=== PATIENT | female | born 1935 | race Caucasian/White ===

== ENCOUNTER 2017-09-14 10:18 | Inpatient (IN) | payer MEDICARE, BC ==
[2017-09-14] MEDS ORDERED: Sodium Chloride 0.9% 10 ML Syringe FLUSH PRN (13:59)
[2017-09-14] MEDS ORDERED: Temazepam 15 MG Cap PO PRN (13:59)
[2017-09-14] MEDS ORDERED: Enoxaparin 30 MG/0.3 ML Syringe SUBCUT SCH (14:00)
[2017-09-14] MEDS ORDERED: Enoxaparin 30 MG/0.3 ML Syringe SUBCUT STA (14:30)
[2017-09-14 14:35] LABS: CHLORIDE,CL 105 mEq/L (98-106); SODIUM,NA 142 mEq/L (136-145)
[2017-09-15] MEDS ORDERED: Aspirin 81 MG Tab.Chew PO SCH ×2 (08:00)
[2017-09-15] MEDS: Enoxaparin 30 MG/0.3 ML Syringe SUBCUT SCH (08:17)
[2017-09-15] MEDS: Docusate Sodium 100 MG Cap PO SCH (08:17)
[2017-09-15] MEDS: Acetaminophen 325 MG Tab PO PRN (08:52)
--- NOTE | 2017-09-15 09:52 | PCM.PN ---
- General Info Date of Service: 09/15/17 Admission Dx/Problem (Free Text): weakness Functional Status: Reports: Pain Controlled, Tolerating Diet, Ambulating - Review of Systems General: Reports: Weakness, Fatigue. Denies: Fever HEENT: Reports: No Symptoms Pulmonary: Denies: Shortness of Breath, Cough Cardiovascular: Denies: Chest Pain, Edema, Lightheadedness Gastrointestinal: Denies: Abdominal Pain, Nausea, Vomiting Genitourinary: Reports: No Symptoms Musculoskeletal: Reports: Neck Pain, Joint Pain Skin: Reports: No Symptoms Neurological: Reports: No Symptoms - Patient Data Vitals - Most Recent: Last Vital Signs Temp 98.3 F 09/15/17 07:49 Pulse 94 09/15/17 07:49 Resp 20 09/15/17 07:49 BP 123/59 L 09/15/17 07:49 Pulse Ox 94 L 09/15/17 07:49 Weight - Most Recent: 152 lb 8 oz Lab Results Last 24 Hours: Laboratory Results - last 24 hr 09/14/17 09/14/17 09/14/17 Range/Units 13:59 14:18 14:18 WBC 5.1 (5.0-10.0) 10^3/uL RBC 4.25 (4.00-5.50) 10^6/uL Hgb 12.9 (12.0-16.0) g/dL Hct 38.9 (37.0-47.0) % MCV 91.5 (82.0-94.0) fL MCH 30.4 (27.0-32.0) pg MCHC 33.2 (33.0-38.0) g/dL RDW Coeff of Maritza 13.5 (11.0-15.0) % Plt Count 213 (150-400) 10^3/uL Neut % (Auto) 64.4 (35-85) % Lymph % (Auto) 25.0 (10-55) % [place] % (Auto) 9.4 (0-16) % Eos % (Auto) 0.8 (0-5) % Baso % (Auto) 0.4 (0-3) % Neut # (Auto) 3.30 (1.80-7.00) 10^3/uL Lymph # (Auto) 1.28 (1.00-4.80) 10^3/uL [place] # (Auto) 0.48 (0.00-0.80) 10^3/uL Eos # (Auto) 0.04 (0.00-0.45) 10^3/uL Baso # (Auto) 0.02 10^3/uL Sodium 142 (136-145) mEq/L Potassium 4.0 (3.5-5.0) mEq/L Chloride 105 (98-106) mEq/L Carbon Dioxide 29 (21-32) mmol/L BUN 14 (7-18) mg/dL Creatinine 0.9 (0.6-1.0) mg/dL Est Cr Clr Drug Dosing 47.78 mL/min Estimated GFR (MDRD) 60 (>=60) mL/min Glucose 121 H (75-99) mg/dL Calcium 9.4 (8.4-10.1) mg/dL Total Bilirubin 0.5 (0.0-1.0) mg/dL AST 20 (15-37) U/L ALT 16 (12-78) U/L Alkaline Phosphatase 64 (46-116) U/L Troponin I < 0.017 (0.00-0.06) ng/mL C-Reactive Protein < 0.2 L (0.2-0.8) mg/dL Total Protein 6.2 L (6.4-8.2) g/dL Albumin 3.5 (3.4-5.0) g/dL Urine Color Yellow (YELLOW) Urine Appearance Clear (CLEAR) Urine pH 7.0 (4.5-8.0) Ur Specific [place] 1.015 (1.003-1.020) Urine Protein Negative (NEGATIVE) mg/dL Urine Glucose (UA) Negative (NEGATIVE) mg/dL Urine Ketones Negative (NEGATIVE) mg/dL Urine Occult Blood Trace-intact H (NEGATIVE) Urine Nitrite Negative (NEGATIVE) Urine Bilirubin Negative (NEGATIVE) Urine Urobilinogen 1.0 (0.2-1.0) EU/dL Ur Leukocyte Esterase Negative (NEGATIVE) Urine RBC 0-5 (0-5) /HPF Urine WBC Not seen (0-5) /HPF Ur Squamous Epith Cells Occasional H (NOT SEEN) /HPF Urine Bacteria Occasional H (NOT SEEN) /HPF Med Orders - Current: Current Medications Acetaminophen (Tylenol) 650 mg PO Q6H PRN PRN Reason: Pain/Fever Last Admin: 09/15/17 08:52 Dose: 650 mg Docusate Sodium (Colace) 100 mg PO DAILY [facility] Last Admin: 09/15/17 08:17 Dose: 100 mg Enoxaparin Sodium (Lovenox) 30 mg SUBCUT Q24H [facility] Last Admin: 09/15/17 08:17 Dose: 30 mg Sodium Chloride (Saline Flush) 10 ml FLUSH ASDIRECTED PRN PRN Reason: Keep Vein Open Temazepam (Restoril) 15 mg PO BEDTIME PRN PRN Reason: Sleep Discontinued Medications Aspirin (Aspirin) mg PO DAILY [facility] Aspirin (Aspirin) 81 mg PO DAILY [facility] Stop: 09/15/17 08:01 Last Admin: 09/15/17 08:17 Dose: 81 mg Enoxaparin Sodium (Lovenox) 30 mg SUBCUT Q24H [facility] Last Admin: 09/14/17 14:07 Dose: Not Given Enoxaparin Sodium (Lovenox) 30 mg SUBCUT NOW [facility] Stop: 09/14/17 14:31 Last Admin: 09/14/17 14:59 Dose: 30 mg - Exam General: Alert, Oriented HEENT: Mucous Membr. Moist/[place] Neck: Supple Lungs: Clear to Auscultation, Normal Respiratory Effort Cardiovascular: Regular Rate, Regular Rhythm GI/Abdominal Exam: Normal Bowel Sounds, Soft, Non-Tender Back Exam: Other (wearing a soft collar on her neck for long standing neck pain) Skin: Warm, Dry Neurological: No New Focal Deficit - Problem List & Annotations (1) Weakness SNOMED Code(s): 77018548 Code(s): R53.1 - WEAKNESS Status: Acute Priority: High Current Visit: Yes - Problem List Review Problem List Initiated/Reviewed/Updated: Yes - My Orders Last 24 Hours: My Active Orders 09/15/17 08:22 Consult to Physical Therapy [PT Evaluation and Treatment] [CONS] Routine 09/15/17 08:28 Acetaminophen [Tylenol] 650 mg PO Q6H PRN - Assessment Assessment:: Weakness - Plan Plan:: Patient doing well today, states just feel tired and weak. Labs done on admit, essentially all negative. She is wearing a soft collar on her neck that she routinely wears since falling 2 years ago. States is having difficulty with left rotation of her neck. Appetite good. Ambulating with staff as standby. Lung sounds clear. Will have PT evaluate and treat. If no changes, possible discharge tomorrow.
[2017-09-15] MEDS: Ondansetron 4 MG/2 ML SDV IVPUSH PRN (17:34)
[2017-09-16] MEDS: Docusate Sodium 100 MG Cap PO SCH (07:34)
[2017-09-16] MEDS: Enoxaparin 30 MG/0.3 ML Syringe SUBCUT SCH (07:35)
[2017-09-16] MEDS: Ondansetron 4 MG/2 ML SDV IVPUSH SCH (19:39)
[2017-09-17] MEDS: Enoxaparin 30 MG/0.3 ML Syringe SUBCUT SCH (07:59)
[2017-09-17] MEDS: Docusate Sodium 100 MG Cap PO SCH (07:59)
[2017-09-17] MEDS: Aspirin 81 MG Tab.EC PO SCH (07:59)
[2017-09-17] MEDS: Ondansetron 4 MG/2 ML SDV IVPUSH PRN (08:00)
[2017-09-17] MEDS: Ondansetron 4 MG/2 ML SDV IVPUSH SCH ×3 (08:05→19:53)
--- NOTE | 2017-09-17 12:11 | PCM.PN ---
- General Info Date of Service: 09/17/17 Admission Dx/Problem (Free Text): Weakness Dizziness- Vertigo Subjective Update: Patient reports she continues to feel very weak. She continues to have lightheadedness and a spinning sensation with movements. She is unsteady on her feet. Does feel she is maybe improving some, but does not feel safe ambulating on her own. She also feels her vision is "hazy" when she changes positions. Functional Status: Reports: Pain Controlled, Tolerating Diet, Ambulating, Urinating. Denies: New Symptoms - Review of Systems General: Reports: Weakness, Fatigue. Denies: Fever, Chills HEENT: Reports: Visual Changes Pulmonary: Reports: No Symptoms Cardiovascular: Reports: Lightheadedness Gastrointestinal: Reports: No Symptoms Genitourinary: Reports: No Symptoms Musculoskeletal: Reports: Neck Pain, Shoulder Pain Skin: Reports: No Symptoms Neurological: Reports: Dizziness, Weakness Psychiatric: Denies: Confusion - Patient Data Vitals - Most Recent: Last Vital Signs Temp 97.3 F 09/17/17 07:49 Pulse 57 L 09/17/17 07:49 Resp 19 09/17/17 07:49 BP 121/54 L 09/17/17 07:49 Pulse Ox 99 09/17/17 07:49 Weight - Most Recent: 152 lb 8 oz Med Orders - Current: Current Medications Acetaminophen (Tylenol) 650 mg PO Q6H PRN PRN Reason: Pain/Fever Last Admin: 09/15/17 08:52 Dose: 650 mg Aspirin (Halfprin) 81 mg PO [facility] Last Admin: 09/17/17 07:59 Dose: 81 mg Docusate Sodium (Colace) 100 mg PO DAILY [facility] Last Admin: 09/17/17 07:59 Dose: 100 mg Enoxaparin Sodium (Lovenox) 30 mg SUBCUT Q24H [facility] Last Admin: 09/17/17 07:59 Dose: 30 mg Ondansetron HCl (Zofran) 4 mg IVPUSH Q6H PRN PRN Reason: Nausea Last Admin: 09/15/17 17:34 Dose: 4 mg Ondansetron HCl (Zofran) 4 mg IVPUSH BID [facility] Last Admin: 09/17/17 08:20 Dose: 4 mg Sodium Chloride (Saline Flush) 10 ml FLUSH ASDIRECTED PRN PRN Reason: Keep Vein Open Temazepam (Restoril) 15 mg PO BEDTIME PRN PRN Reason: Sleep Discontinued Medications Aspirin (Aspirin) mg PO DAILY [facility] Aspirin (Aspirin) 81 mg PO DAILY [facility] Stop: 09/15/17 08:01 Last Admin: 09/15/17 08:17 Dose: 81 mg Enoxaparin Sodium (Lovenox) 30 mg SUBCUT Q24H [facility] Last Admin: 09/14/17 14:07 Dose: Not Given Enoxaparin Sodium (Lovenox) 30 mg SUBCUT NOW [facility] Stop: 09/14/17 14:31 Last Admin: 09/14/17 14:59 Dose: 30 mg - Exam General: Alert, Oriented Neck: Supple Lungs: Clear to Auscultation, Normal Respiratory Effort Cardiovascular: Regular Rate, Regular Rhythm Neurological: No New Focal Deficit Psy/Mental Status: Alert, Normal Affect, Normal Mood - Problem List & Annotations (1) Dizziness SNOMED Code(s): 884339967 Code(s): R42 - DIZZINESS AND GIDDINESS Status: Acute Current Visit: Yes (2) Vertigo SNOMED Code(s): 697888522 Code(s): R42 - DIZZINESS AND GIDDINESS Status: Acute Current Visit: Yes (3) Weakness SNOMED Code(s): 94385112 Code(s): R53.1 - WEAKNESS Status: Acute Priority: High Current Visit: Yes - Problem List Review Problem List Initiated/Reviewed/Updated: Yes - Assessment Assessment:: Weakness Dizziness- Vertigo - Plan Plan:: Patient doing okay today. Reports continues fatigue and weakness. She does report she continues to have lightheadedness with standing and vertigo with certain movements. Continues to require SBA with transfers. She reports she has difficulty with neck pain and rotation of her neck. Does have a soft collar on at time of rounds. She reports she wears this intermittently since falling 2 years ago. Will have PT evaluate and treat tomorrow. May need SNF placement upon discharge.
[2017-09-17] MEDS: Acetaminophen 325 MG Tab PO PRN (19:57)
[2017-09-18] MEDS: Acetaminophen 325 MG Tab PO PRN ×2 (04:39→20:00)
[2017-09-18] MEDS: Aspirin 81 MG Tab.EC PO SCH (07:27)
[2017-09-18] MEDS: Ondansetron 4 MG/2 ML SDV IVPUSH SCH ×2 (07:27→19:44)
[2017-09-18] MEDS: Enoxaparin 30 MG/0.3 ML Syringe SUBCUT SCH (07:27)
[2017-09-18] MEDS: Docusate Sodium 100 MG Cap PO SCH (07:27)
--- NOTE | 2017-09-18 08:29 | PN ---
DATE: 09/16/2017 S: Philly is seen with family present. She continues to be very weak. I would not say lethargic, but just does not feel like she has a lot of energy. She complains of significant and ongoing issues with dizziness. This seems like this is more vertiginous. We do have her in a soft collar now and she thinks it does give her some improvement. Unfortunately, no further PT is available this weekend for some canalith repositioning. O: GENERAL: She is pleasant and cooperative. HEENT: Grossly benign. NECK: Supple. Veins are flat. RESPIRATORY: Her lung sounds remain clear. CARDIAC: Tones are regular. ABDOMEN: Soft. She has no peripheral edema. She is bradycardic with pulses in the 50s through the night, but when she is up she is usually in the low 60s. ASSESSMENT: 1. FATIGUE AND WEAKNESS. 2. LIKELY ONGOING VERTIGO. P: I just do not feel the patient is stable for home at this time. She continues to have multiple somatic complaints and now with this worsening dizziness, I would rather put her on some low-dose scheduled Zofran and try to have PT work with her this upcoming week. I am going to schedule for an MRI of the head and of the C-spine because she has some chronic neck pain. I believe she had her carotid yesterday. I am yet to see those reports, but at this time I think she is just too fragile to go with her multiple complaints and her vertigo. DENILSON/ASHWINI /[id number]
--- NOTE | 2017-09-18 15:27 | PCM.PN ---
- General Info Date of Service: 09/18/17 Admission Dx/Problem (Free Text): Weakness Dizziness- Vertigo Functional Status: Reports: Pain Controlled, Ambulating. Denies: Tolerating Diet (not eating well due to nausea this am) - Review of Systems General: Reports: Fatigue. Denies: Fever, Weakness HEENT: Reports: No Symptoms Pulmonary: Denies: Shortness of Breath, Cough Cardiovascular: Denies: Chest Pain, Edema, Lightheadedness Gastrointestinal: Reports: Abdominal Pain, Decreased Appetite, Nausea. Denies: Vomiting Genitourinary: Reports: No Symptoms Musculoskeletal: Reports: No Symptoms Skin: Reports: No Symptoms Neurological: Reports: No Symptoms - Patient Data Vitals - Most Recent: Last Vital Signs Temp 96.9 F 09/18/17 07:25 Pulse 57 L 09/18/17 07:25 Resp 16 09/18/17 07:25 BP 132/58 L 09/18/17 07:25 Pulse Ox 96 09/18/17 07:25 Weight - Most Recent: 152 lb 8 oz Med Orders - Current: Current Medications Acetaminophen (Tylenol) 650 mg PO Q6H PRN PRN Reason: Pain/Fever Last Admin: 09/18/17 04:39 Dose: 650 mg Aspirin (Halfprin) 81 mg PO WITHBREAKFAST [facility] Last Admin: 09/18/17 07:27 Dose: 81 mg Docusate Sodium (Colace) 100 mg PO DAILY [facility] Last Admin: 09/18/17 07:27 Dose: 100 mg Enoxaparin Sodium (Lovenox) 30 mg SUBCUT Q24H [facility] Last Admin: 09/18/17 07:27 Dose: 30 mg Ondansetron HCl (Zofran) 4 mg IVPUSH Q6H PRN PRN Reason: Nausea Last Admin: 09/15/17 17:34 Dose: 4 mg Ondansetron HCl (Zofran) 4 mg IVPUSH BID [facility] Last Admin: 09/18/17 07:27 Dose: 4 mg Sodium Chloride (Saline Flush) 10 ml FLUSH ASDIRECTED PRN PRN Reason: Keep Vein Open Temazepam (Restoril) 15 mg PO BEDTIME PRN PRN Reason: Sleep Discontinued Medications Aspirin (Aspirin) mg PO DAILY [facility] Aspirin (Aspirin) 81 mg PO DAILY [facility] Stop: 09/15/17 08:01 Last Admin: 09/15/17 08:17 Dose: 81 mg Enoxaparin Sodium (Lovenox) 30 mg SUBCUT Q24H [facility] Last Admin: 09/14/17 14:07 Dose: Not Given Enoxaparin Sodium (Lovenox) 30 mg SUBCUT NOW [facility] Stop: 09/14/17 14:31 Last Admin: 09/14/17 14:59 Dose: 30 mg - Exam General: Alert, Oriented HEENT: Mucous Membr. Moist/[place] Neck: Supple Lungs: Clear to Auscultation, Normal Respiratory Effort Cardiovascular: Regular Rate, Regular Rhythm GI/Abdominal Exam: Normal Bowel Sounds, Soft, Non-Tender Extremities: Normal Inspection, No Pedal Edema Skin: Warm, Dry Neurological: No New Focal Deficit - Problem List & Annotations (1) Weakness SNOMED Code(s): 27417535 Code(s): R53.1 - WEAKNESS Status: Acute Priority: High Current Visit: Yes - Problem List Review Problem List Initiated/Reviewed/Updated: Yes - Assessment Assessment:: Weakness Dizziness- Vertigo - Plan Plan:: Patient doing okay today. Reports continues fatigue and weakness. She does report she continues to have lightheadedness with standing and vertigo with certain movements. Continues to require SBA with transfers. She reports she has difficulty with neck pain and rotation of her neck. Does have a soft collar on at time of rounds. She reports she wears this intermittently since falling 2 years ago. Will have PT evaluate and treat tomorrow. May need SNF placement upon discharge. 09-18-2017 Patient complaining of nausea this am, not tolerating breakfast. Still continues to complain of neck and shoulder pain which has been a chronic complaint for her. She has had her neck injected and needs 3 months of PT before an additional injection. Patient has yet to start that as an outpatient. Now states that the dizziness and weakness complicates her ability to do so. Patient does not typically take any medications for pain as she states they upset her stomach. Is now on zofran for her nausea. Is ambulating with standby assist. Was scheduled for MRI of her head and neck here tomorrow but patient and son relate that it is nearly impossible for her to position for it here and question if could be done in [place] as it is a flat bed there. Did discuss discharge plan with patient and son. [place] Will discuss with PT and determine if safely able to return home.
[2017-09-19] MEDS: Ondansetron 4 MG/2 ML SDV IVPUSH SCH (07:28)
[2017-09-19] MEDS: Docusate Sodium 100 MG Cap PO SCH (07:28)
[2017-09-19] MEDS: Enoxaparin 30 MG/0.3 ML Syringe SUBCUT SCH (07:29)
[2017-09-19] MEDS: Aspirin 81 MG Tab.EC PO SCH (07:29)
[2017-09-19] MEDS ORDERED: Bisacodyl 10 MG Supp RECTAL ONE (08:57)
--- NOTE | 2017-09-20 14:54 | PCM.DCSUM1 ---
Discharge Summary - Hospital Course Free Text/Narrative:: Philly presented to clinic for increased fatigue, not feeling well for 2 weeks. Had not been sleeping; complaining of headache and nausea. Has been dealing with ongoing neck pain and questions if contributes to nausea. Does have a history of vertigo, felt it was worse as of late. Admitted for further work up to rule out any infectious and/or cardiac concern. Initial labs on admit show WBC 5.1, 12.9 hemoglobin. BMP normal. UA negative. - Discharge Data Discharge Date: 09/19/17 Discharge Disposition: Home, Self-Care 01 Condition: Good - Discharge Diagnosis/Problem(s) (1) Weakness SNOMED Code(s): 77767596 ICD Code: R53.1 - WEAKNESS Status: Acute Priority: High - Patient Summary/Data Complications: none Consults: Consultations 09/15/17 08:22 Consult to Physical Therapy [PT Evaluation and Treatment] [CONS] Routine 09/16/17 09:53 Consult to Physical Therapy [PT Evaluation and Treatment] [CONS] Routine Hospital Course: Patient has had intermittent nausea with dry heaves during stay, controlled with Zofran. Does continue to complain of neck pain, but chronic concern. Has been ambulating with PT and doing well. Had issues with constipation, resolved this am with a suppository. Patient has had issues with being compliant of meds in the past, does not like to routinely take Miralax and will take only when doesn't have a bowel movement for 3-4 days, takes tylenol routinely for a short time and does better with this but then stops taking it. Much education was provided to patient on this in order to help control her symptoms on a routine basis. - Patient Instructions Diet: Usual Diet as Tolerated Activity: As Tolerated - Discharge Plan Prescriptions/Med Rec: Acetaminophen [Tylenol Extra Strength] 500 mg PO TID #90 tablet Polyethylene Glycol 3350 [MiraLAX] 17 gm PO DAILY #30 packet Home Medications: Home Meds Aspirin [Children's Aspirin] 1 tab PO DAILY 09/14/17 [History] Docusate Sodium [Stool Softener] 100 mg PO DAILY 09/14/17 [History] Acetaminophen [Tylenol Extra Strength] 500 mg PO TID #90 tablet 09/19/17 [Rx] Polyethylene Glycol 3350 [MiraLAX] 17 gm PO DAILY #30 packet 09/19/17 [Rx] Referrals: Ozzie Tadeo MD [Primary Care Provider] - (Follow up with Dr. Tadeo in 2 weeks) - Discharge Summary/Plan Comment DC Time >30 min.: No Discharge Summary/Plan Comment: Discharge back to the [facility]. Continue with PT as an outpatient for her neck. Tylenol scheduled three times a day. Miralax daily. Follow up with Dr. Tadeo in clinic in a week. - General Info Date of Service: 09/19/17 Admission Dx/Problem (Free Text: Weakness Dizziness- Vertigo Functional Status: Reports: Pain Controlled, Tolerating Diet, Ambulating - Review of Systems General: Denies: Fever, Weakness, Fatigue HEENT: Reports: No Symptoms Pulmonary: Denies: Shortness of Breath, Cough, Wheezing Cardiovascular: Denies: Chest Pain, Edema, Lightheadedness Gastrointestinal: Reports: Nausea. Denies: Abdominal Pain, Vomiting Genitourinary: Reports: No Symptoms Musculoskeletal: Reports: Neck Pain, Joint Pain Skin: Reports: No Symptoms Neurological: Reports: No Symptoms - Patient Data Vitals - Most Recent: Last Vital Signs Temp 97.6 F 09/19/17 08:00 Pulse 66 09/19/17 08:00 Resp 20 09/19/17 08:00 BP 132/63 09/19/17 08:00 Pulse Ox 96 09/19/17 08:00 Weight - Most Recent: 152 lb 8 oz Med Orders - Current: Current Medications Discontinued Medications Acetaminophen (Tylenol) 650 mg PO Q6H PRN PRN Reason: Pain/Fever Last Admin: 09/18/17 20:00 Dose: 650 mg Aspirin (Aspirin) mg PO DAILY [facility] Aspirin (Aspirin) 81 mg PO DAILY [facility] Stop: 09/15/17 08:01 Last Admin: 09/15/17 08:17 Dose: 81 mg Aspirin (Halfprin) 81 mg PO WITHBREAKFAST [facility] Last Admin: 09/19/17 07:29 Dose: 81 mg Bisacodyl (Dulcolax) 10 mg RECTAL ONETIME ONE Stop: 09/19/17 08:58 Last Admin: 09/19/17 09:13 Dose: 10 mg Docusate Sodium (Colace) 100 mg PO DAILY [facility] Last Admin: 09/19/17 07:28 Dose: 100 mg Enoxaparin Sodium (Lovenox) 30 mg SUBCUT Q24H [facility] Last Admin: 09/14/17 14:07 Dose: Not Given Enoxaparin Sodium (Lovenox) 30 mg SUBCUT Q24H [facility] Last Admin: 09/19/17 07:29 Dose: 30 mg Enoxaparin Sodium (Lovenox) 30 mg SUBCUT NOW [facility] Stop: 09/14/17 14:31 Last Admin: 09/14/17 14:59 Dose: 30 mg Ondansetron HCl (Zofran) 4 mg IVPUSH Q6H PRN PRN Reason: Nausea Last Admin: 09/15/17 17:34 Dose: 4 mg Ondansetron HCl (Zofran) 4 mg IVPUSH BID [facility] Last Admin: 09/19/17 07:28 Dose: 4 mg Sodium Chloride (Saline Flush) 10 ml FLUSH ASDIRECTED PRN PRN Reason: Keep Vein Open Temazepam (Restoril) 15 mg PO BEDTIME PRN PRN Reason: Sleep - Exam General: Reports: Alert, Oriented HEENT: Reports: Mucous Membr. Moist/[place] Neck: Reports: Supple Lungs: Reports: Clear to Auscultation, Normal Respiratory Effort Cardiovascular: Reports: Regular Rate, Regular Rhythm GI/Abdominal Exam: Normal Bowel Sounds, Soft, Non-Tender Extremities: Normal Inspection, No Pedal Edema Skin: Reports: Warm, Dry Neurological: Reports: No New Focal Deficit *Q Meaningful Use (DIS) - VTE *Q VTE Criteria *Q: - Stroke *Q Stroke Criteria *Q: - AMI *Q AMI Criteria *Q:
== END 2017-09-19 15:13 | disposition home or self-care (01) | DRG 948 ==
LOC: CC.MS 10:18 → UNDOADMOB 10:23 → CC.MS 10:23 → OBSVTOIN 09-16 10:18
PROVIDERS: ADMIT Family Medicine; ATTEND Family Medicine
DX: R53.1 Weakness (principal); R53.83 Other fatigue; R42 Dizziness and giddiness; G89.29 Other chronic pain; M54.2 Cervicalgia; F03.90 Unspecified dementia, unspecified severity, without behavioral disturbance, psychotic disturbance, mood disturbance, and anxiety; Z86.19 Personal history of other infectious and parasitic diseases; I10 Essential (primary) hypertension; M81.0 Age-related osteoporosis without current pathological fracture; Z88.8 Allergy status to other drugs, medicaments and biological substances; Z79.82 Long term (current) use of aspirin; Z79.899 Other long term (current) drug therapy
CPT/HCPCS: 36415; 71046; 80053; 81001; 84484; 85025; 86140; 93005; 93880; 96372; 96374; 97110-GP; 97112-GP; 97161-GP; A9270-GY; G0378; J1650; J2405

== ENCOUNTER 2018-04-29 00:44 | Observation (INO) | payer MEDICARE ==
--- NOTE | 2018-04-29 00:57 | EDM.PDOC ---
ED HPI GENERAL MEDICAL PROBLEM - General Chief Complaint: General Stated Complaint: FALL Time Seen by Provider: 04/29/18 00:45 Source of Information: Reports: Patient, Family History Limitations: Reports: No Limitations - History of Present Illness INITIAL COMMENTS - FREE TEXT/NARRATIVE: Patient presents to ER per EMS with left hip pain. [facility] hours [facility]. Was wearing slippers and when coming off the carpet on to wood floors, lost her balance and fell. Landed on left hip. Was able to be assisted from the floor and walked back to her apartment. Denies hitting her head, no loss of consciousness. Did retire for the night but then got more sore and stiff and was unable to get out of bed. She states it took her 30 minutes to sit up at the bedside in order for her to call for help due to pain. Got nauseated as a result. No vomiting. Daughter relates she has become much more weak over the last 3 weeks. Balance has been worse. Relates had an appointment upcoming with Dr. Tadeo to discuss this. Onset: Today, Sudden Duration: Hour(s):, Getting Worse Location: Reports: Lower Extremity, Left Quality: Reports: Throbbing Severity: Moderate Improves with: Reports: Rest Worsens with: Reports: Movement Context: Reports: Trauma Associated Symptoms: Reports: Nausea/Vomiting, Weakness. Denies: Confusion, Chest Pain, Cough, Fever/Chills, Loss of Appetite, Shortness of Breath, Syncope Left Hip Pain Score (Numeric/FACES): 4 - Related Data Allergies Allergy/AdvReac Type Severity Reaction Status Date / Time metoclopramide [From Reglan] Allergy Nausea Verified 04/29/18 00:46 propoxyphene [From Darvon] Allergy Nausea Verified 04/29/18 00:46 Home Meds: Home Meds Aspirin [Children's Aspirin] 1 tab PO DAILY 09/14/17 [History] Docusate Sodium [Stool Softener] 100 mg PO DAILY 09/14/17 [History] Acetaminophen [Tylenol Extra Strength] 500 mg PO TID #90 tablet 09/19/17 [Rx] Polyethylene Glycol 3350 [MiraLAX] 17 gm PO DAILY #30 packet 09/19/17 [Rx] Past Medical History Gastrointestinal History: Reports: Chronic Constipation TELEPHONER History: Reports: Musculoskeletal History: Reports: Neck Pain, Chronic - Past Surgical History HEENT Surgical History: Reports: Other (See Below) Other HEENT Surgeries/Procedures: SKIN GRAFT ON NOSE GI Surgical History: Reports: Appendectomy, Cholecystectomy, Colonoscopy, EGD Female Surgical History: Reports: Hysterectomy Musculoskeletal Surgical History: Reports: Knee Replacement, Shoulder Surgery Social & Family History - Tobacco Use Smoking Status *Q: Never Smoker - Caffeine Use Caffeine Use: Reports: Coffee ED ROS GENERAL - Review of Systems Review Of Systems: See Below Constitutional: Reports: Malaise, Weakness, Fatigue. Denies: Fever, Chills, Decreased Appetite HEENT: Denies: Ear Pain, Sinus Problem, Throat Pain, Vertigo, Vision Change Respiratory: Denies: Shortness of Breath, Cough Cardiovascular: Denies: Chest Pain, Edema, Lightheadedness Endocrine: Reports: Fatigue GI/Abdominal: Reports: Nausea. Denies: Abdominal Pain, Vomiting : Reports: No Symptoms Musculoskeletal: Reports: Back Pain, Leg Pain, Joint Pain, Muscle Pain Skin: Reports: Bruising Neurological: Reports: Weakness. Denies: Headache, Syncope Psychiatric: Reports: No Symptoms ED EXAM, GENERAL - Physical Exam Exam: See Below Exam Limited By: No Limitations General Appearance: Alert, WD/WN, No Apparent Distress Ears: Normal External Exam, Normal TMs Nose: Normal Inspection, Normal Mucosa, No Blood Throat/Mouth: Normal Inspection, Normal Oropharynx Head: Normocephalic Neck: Normal Inspection, Supple, Non-Tender Respiratory/Chest: No Respiratory Distress, Lungs Clear, Normal Breath Sounds Cardiovascular: Regular Rate, Rhythm GI/Abdominal: Normal Bowel Sounds, Soft, Non-Tender Extremities: Joint Swelling, Limited Range of Motion, Other (large firm swelling of left hip) Neurological: Alert, Oriented Skin Exam: Warm, Dry Course - Vital Signs Last Recorded V/S: Last Vital Signs Temp 97.4 F 04/29/18 00:47 Pulse 64 04/29/18 00:47 Resp 18 04/29/18 00:47 BP 147/68 H 04/29/18 00:47 Pulse Ox 98 04/29/18 00:47 - Orders/Labs/Meds Orders: Active Orders 24 hr Category Date Time Status Hip Min 2V or 3V w Pelvis Lt [CR] Stat Exams 04/29/18 00:47 Taken Meds: Medications Discontinued Medications Generic Name Dose Route Start Last Admin Trade Name Freq PRN Reason Stop Dose Admin Acetaminophen 500 mg 04/29/18 01:09 04/29/18 01:18 Tylenol Extra Strength PO 04/29/18 01:10 500 mg ONETIME ONE Administration Tramadol HCl 50 mg 04/29/18 01:08 04/29/18 01:14 Ultram PO 04/29/18 01:09 50 mg ONETIME ONE Administration Tramadol HCl 1 packet 04/29/18 01:09 Take Home: Tramadol 50 Mg, 4 Tab Pack PO 04/29/18 01:10 ONETIME ONE - Re-Assessments/Exams Free Text/Narrative Re-Assessment/Exam: 04/29/18 01:21 Patient did want to be discharged home but when getting her up at bedside, gets nauseated and feels lightheaded. Pain is tolerable with weight bearing but cannot tolerate being up due to the nausea. Departure - Departure Time of Disposition: 01:21 Disposition: Refer to Observation Condition: Fair Clinical Impression: Weakness, Vertigo, Hematoma of left hip, Nausea - Discharge Information *PRESCRIPTION DRUG MONITORING PROGRAM REVIEWED*: No *COPY OF PRESCRIPTION DRUG MONITORING REPORT IN PATIENT KIRBY: No Forms: ED Department Discharge - Problem List & Annotations (1) Weakness SNOMED Code(s): 75769235 Code(s): R53.1 - WEAKNESS Status: Acute Priority: High Current Visit: Yes (2) Vertigo SNOMED Code(s): 698938953 Code(s): R42 - DIZZINESS AND GIDDINESS Status: Acute Priority: High Current Visit: Yes (3) Hematoma of left hip SNOMED Code(s): 869185140 Code(s): S70.02XA - CONTUSION OF LEFT HIP, INITIAL ENCOUNTER Status: Acute Priority: High Current Visit: Yes (4) Nausea SNOMED Code(s): 915434925 Code(s): R11.0 - NAUSEA Status: Acute Priority: High Current Visit: Yes - Problem List Review Problem List Initiated/Reviewed/Updated: Yes - My Orders Last 24 Hours: My Active Orders 04/29/18 00:47 Hip Min 2V or 3V w Pelvis Lt [CR] Stat - Assessment/Plan Admission H&P: Please use this note as an admission H&P Last 24 Hours: My Active Orders 04/29/18 00:47 Hip Min 2V or 3V w Pelvis Lt [CR] Stat Assessment:: Fall with left hip hematoma Dizziness Weakness Nausea Plan: Admit to observation. Will treat with Tramadol, Fentanyl only if needed as is sensitive to medications as cause nausea. Zofran for nausea. Ambulate with assist and evaluate for ability to return home
[2018-04-29] MEDS ORDERED: traMADol 50 MG Tab PO ONE ×2 (01:08→13:38)
[2018-04-29] MEDS ORDERED: Acetaminophen 500 MG Tab PO ONE (01:09)
[2018-04-29] MEDS ORDERED: Take Home: traMADol 50 MG, 4 Tab Pack PO ONE ×2 (01:09→12:57)
[2018-04-29] MEDS ORDERED: fentaNYL 100 MCG/2 ML SDV IVPUSH PRN (02:35)
[2018-04-29] MEDS ORDERED: Ondansetron 4 MG Tab.DIS PO PRN (02:35)
[2018-04-29] MEDS ORDERED: Sodium Chloride 0.9% 10 ML Syringe FLUSH PRN (02:35)
[2018-04-29] MEDS ORDERED: Ondansetron 4 MG/2 ML SDV IV PRN (02:35)
[2018-04-29] MEDS ORDERED: traMADol 50 MG Tab PO PRN (02:45)
[2018-04-29] MEDS ORDERED: Acetaminophen 500 MG Tab PO SCH (08:00)
[2018-04-29] MEDS ORDERED: Docusate Sodium 100 MG Cap PO SCH (08:00)
[2018-04-29] MEDS ORDERED: Polyethylene Glycol 3350 Powder 17 GM Packet PO SCH (08:00)
[2018-04-29] MEDS ORDERED: Aspirin 81 MG Tab.Chew PO SCH (08:00)
--- NOTE | 2018-04-29 19:38 | PCM.DCSUM1 ---
Discharge Summary - Hospital Course Free Text/Narrative:: Patient presented to ER after a fall. She had fallen earlier in the evening and landed on her left hip. She was able to get up with assist and return to her apartment. She was in bed and then found herself unable to get up unassisted and the pain in her hip was increasing. States it took her 30 minutes to get out of bed to call for help. EMS noted large hematoma to left hip but was able to stand and walk a few feet to the cot and was full weight bearing. She mostly complained of nausea and dizziness when trying to be up. Xrays in ER negative for any fractures. Diagnosis: Stroke: No Modified [place] Scale: No Symptoms at All Modified [place] Scale Score: 0 - Discharge Data Discharge Date: 04/29/18 Discharge Disposition: Home, Self-Care 01 Condition: Good - Discharge Diagnosis/Problem(s) (1) Weakness SNOMED Code(s): 17107747 ICD Code: R53.1 - WEAKNESS Status: Acute Priority: High (2) Vertigo SNOMED Code(s): 185008539 ICD Code: R42 - DIZZINESS AND GIDDINESS Status: Acute Priority: High (3) Hematoma of left hip SNOMED Code(s): 506376222 ICD Code: S70.02XA - CONTUSION OF LEFT HIP, INITIAL ENCOUNTER Status: Acute Priority: High (4) Nausea SNOMED Code(s): 035526888 ICD Code: R11.0 - NAUSEA Status: Acute Priority: High - Patient Summary/Data Complications: none Hospital Course: Patient was to be discharged home from the ER as she did not want to be admitted but unable to get up and walk without dizziness or nausea. Pain was tolerable but movements very slow. Opted to admit her for observation and pain control and determine tolerance of Tramadol. Did rest well after admission. This am, able to slowly get up to side of bed unassisted. Able to bear full weight on left leg but with pain. She is ambulating in the halls with a walker without nausea or dizziness. Has not had any concerns with pain meds. Discharge home on Tramadol. Has a scheduled appointment with Dr. Tadeo on Monday and will keep that as follow up as well. - Patient Instructions Diet: Usual Diet as Tolerated Activity: As Tolerated - Discharge Plan *PRESCRIPTION DRUG MONITORING PROGRAM REVIEWED*: No *COPY OF PRESCRIPTION DRUG MONITORING REPORT IN PATIENT KIRBY: No Prescriptions/Med Rec: traMADol [Ultram] 50 mg PO Q6H PRN #30 tablet PRN Reason: Pain Home Medications: Home Meds Aspirin [Children's Aspirin] 1 tab PO DAILY 09/14/17 [History] Docusate Sodium [Stool Softener] 100 mg PO DAILY 09/14/17 [History] Acetaminophen [Tylenol Extra Strength] 500 mg PO TID #90 tablet 09/19/17 [Rx] Polyethylene Glycol 3350 [MiraLAX] 17 gm PO DAILY #30 packet 09/19/17 [Rx] traMADol [Ultram] 50 mg PO Q6H PRN #30 tablet 04/29/18 [Rx] Forms: ED Department Discharge Referrals: Ozzie Tadeo MD [Primary Care Provider] - (Keep scheduled appointment with Dr. Tadeo on Monday as planned) - Discharge Summary/Plan Comment DC Time >30 min.: No Discharge Summary/Plan Comment: [facility] Tr[facility] in addition to tylenol for pain control. Walker with ambulation. Daughter will stay with patient until up and about and more steady. - General Info Date of Service: 04/29/18 Admission Dx/Problem (Free Text: Hematoma to Left Hip Functional Status: Reports: Pain Controlled, Tolerating Diet, Ambulating - Review of Systems General: Reports: Weakness, Fatigue. Denies: Fever HEENT: Reports: No Symptoms Pulmonary: Denies: Shortness of Breath, Cough Cardiovascular: Denies: Chest Pain, Edema, Lightheadedness Gastrointestinal: Denies: Abdominal Pain, Nausea, Vomiting Genitourinary: Reports: No Symptoms Musculoskeletal: Reports: Joint Pain Skin: Reports: No Symptoms Neurological: Reports: No Symptoms - Patient Data Vitals - Most Recent: Last Vital Signs Temp 96.6 F 04/29/18 07:26 Pulse 64 04/29/18 07:26 Resp 18 04/29/18 07:26 BP 99/48 L 04/29/18 07:26 Pulse Ox 98 04/29/18 07:26 Weight - Most Recent: 160 lb 1.6 oz Lab Results - Last 24 hrs: Laboratory Results - last 24 hr 04/29/18 04/29/18 Range/Units 05:11 05:11 WBC 10.0 (5.0-10.0) 10^3/uL RBC 3.78 L (4.00-5.50) 10^6/uL Hgb 11.2 L (12.0-16.0) g/dL Hct 34.1 L (37.0-47.0) % MCV 90.2 (82.0-94.0) fL MCH 29.6 (27.0-32.0) pg MCHC 32.8 L (33.0-38.0) g/dL RDW Coeff of Maritza 14.1 (11.0-15.0) % Plt Count 237 (150-400) 10^3/uL Neut % (Auto) 77.2 (35-85) % Lymph % (Auto) 16.3 (10-55) % [place] % (Auto) 5.9 (0-16) % Eos % (Auto) 0.2 (0-5) % Baso % (Auto) 0.4 (0-3) % Neut # (Auto) 7.74 H (1.80-7.00) 10^3/uL Lymph # (Auto) 1.63 (1.00-4.80) 10^3/uL [place] # (Auto) 0.59 (0.00-0.80) 10^3/uL Eos # (Auto) 0.02 (0.00-0.45) 10^3/uL Baso # (Auto) 0.04 10^3/uL Sodium 138 (136-145) mEq/L Potassium 4.7 (3.5-5.0) mEq/L Chloride 103 (98-106) mEq/L Carbon Dioxide 30 (21-32) mmol/L BUN 28 H D (7-18) mg/dL Creatinine 1.0 (0.6-1.0) mg/dL Est Cr Clr Drug Dosing 37.68 mL/min Estimated GFR (MDRD) 53 L (>=60) mL/min Glucose 117 H (75-99) mg/dL Calcium 8.9 (8.4-10.1) mg/dL Total Bilirubin 0.5 (0.0-1.0) mg/dL AST 23 (15-37) U/L ALT 17 (12-78) U/L Alkaline Phosphatase 83 (46-116) U/L Total Protein 6.1 L (6.4-8.2) g/dL Albumin 3.5 (3.4-5.0) g/dL Med Orders - Current: Current Medications Discontinued Medications Acetaminophen (Tylenol Extra Strength) 500 mg PO ONETIME ONE Stop: 04/29/18 01:10 Last Admin: 04/29/18 01:18 Dose: 500 mg Acetaminophen (Tylenol Extra Strength) 500 mg PO TID [facility] Last Admin: 04/29/18 08:14 Dose: 500 mg Aspirin (Aspirin) 81 mg PO DAILY [facility] Last Admin: 04/29/18 08:14 Dose: 81 mg Docusate Sodium (Colace) 100 mg PO DAILY [facility] Last Admin: 04/29/18 08:14 Dose: 100 mg Fentanyl (Sublimaze) 25 mcg IVPUSH Q6H PRN PRN Reason: Pain Ondansetron HCl (Zofran Odt) 4 mg PO Q4H PRN PRN Reason: nausea, able to take PO Ondansetron HCl (Zofran) 4 mg IV Q4H PRN PRN Reason: Nausea/Vomiting Polyethylene Glycol (Miralax) 17 gm PO DAILY [facility] Last Admin: 04/29/18 08:12 Dose: 17 gm Sodium Chloride (Saline Flush) 10 ml FLUSH ASDIRECTED PRN PRN Reason: Keep Vein Open Tramadol HCl (Ultram) 50 mg PO ONETIME ONE Stop: 04/29/18 01:09 Last Admin: 04/29/18 01:14 Dose: 50 mg Tramadol HCl (Take Home: Tramadol 50 Mg, 4 Tab Pack) 1 packet PO ONETIME ONE Stop: 04/29/18 01:10 Last Admin: 04/29/18 02:36 Dose: Not Given Tramadol HCl (Ultram) 50 mg PO Q6H PRN PRN Reason: Pain Tramadol HCl (Take Home: Tramadol 50 Mg, 4 Tab Pack) 1 packet PO ONETIME ONE Stop: 04/29/18 12:58 Last Admin: 04/29/18 13:33 Dose: 1 packet - Exam General: Reports: Alert, Oriented HEENT: Reports: Mucous Membr. Moist/[place] Neck: Reports: Supple Lungs: Reports: Clear to Auscultation, Normal Respiratory Effort Cardiovascular: Reports: Regular Rate, Regular Rhythm GI/Abdominal Exam: Normal Bowel Sounds, Soft, Non-Tender Extremities: Other (skin taut, firm to left hip, swollen)
== END 2018-04-29 13:39 | disposition home or self-care (01) ==
LOC: CC.ED 00:44 → CC.MS 01:25 → UNDOADMOB 01:30 → CC.MS 01:30 → CC.ED 01:30 → UNDODISOB 13:39
PROVIDERS: ADMIT Physician Assistant Medical; ATTEND Family Medicine
DX: S70.02XA Contusion of left hip, initial encounter (principal); R11.0 Nausea; R42 Dizziness and giddiness; R53.1 Weakness; W19.XXXA Unspecified fall, initial encounter; W18.30XA Fall on same level, unspecified, initial encounter
CPT/HCPCS: 36415; 80053; 81001; 85025; 99285; A9270-GY; G0378

== ENCOUNTER 2018-05-30 08:30 | Inpatient (IN) | payer MEDICARE, BC ==
[2018-05-30] MEDS ORDERED: Magnesium Hydroxide 400 MG/5 ML Susp 30 ML Cup PO PRN (15:13)
[2018-05-30] MEDS ORDERED: Sodium Chloride 0.9% 10 ML Syringe FLUSH PRN (15:13)
[2018-05-30 15:29] LABS: CHLORIDE,CL 109 mEq/L (98-106); SODIUM,NA 146 mEq/L (136-145)
[2018-05-30] MEDS: Meloxicam 7.5 MG Tab PO SCH (16:04)
[2018-05-30] MEDS: Enoxaparin 40 MG/0.4 ML Syringe SUBCUT SCH (16:04)
[2018-05-30] MEDS ORDERED: Sodium Chloride 0.9% 1,000 ML IV SCH (16:30)
[2018-05-30] MEDS: cefTRIAXone 1 GM Vial IVPUSH SCH (17:06)
[2018-05-30] MEDS: **PTOM** Gabapentin 100 MG Cap PO SCH (20:15)
[2018-05-30] MEDS: **PTOM** Mirtazapine 15 MG Tab PO SCH (20:16)
[2018-05-30] MEDS: Acetaminophen 500 MG Tab PO SCH (20:16)
[2018-05-31] MEDS: Meloxicam 7.5 MG Tab PO SCH (08:22)
[2018-05-31] MEDS: Docusate Sodium 100 MG Cap PO SCH (08:22)
[2018-05-31] MEDS: Acetaminophen 500 MG Tab PO SCH ×3 (08:22→19:54)
[2018-05-31] MEDS: Aspirin 81 MG Tab.Chew PO SCH (08:23)
[2018-05-31] MEDS: Polyethylene Glycol 3350 Powder 17 GM Packet PO SCH (08:23)
[2018-05-31] MEDS: **PTOM** Gabapentin 100 MG Cap PO SCH ×3 (08:23→19:54)
--- NOTE | 2018-05-31 09:08 | PCM.PN ---
- General Info Date of Service: 05/31/18 Admission Dx/Problem (Free Text): Weakness Unsteady gait Functional Status: Reports: Pain Controlled, Tolerating Diet, Other (burning in feet). Denies: Ambulating - Review of Systems General: Reports: Weakness, Fatigue. Denies: Fever HEENT: Reports: No Symptoms Pulmonary: Denies: Shortness of Breath, Cough Cardiovascular: Denies: Chest Pain, Edema, Lightheadedness Gastrointestinal: Denies: Abdominal Pain, Nausea, Vomiting Genitourinary: Reports: No Symptoms Musculoskeletal: Reports: Neck Pain Skin: Reports: No Symptoms Neurological: Reports: Weakness, Gait Disturbance - Patient Data Vitals - Most Recent: Last Vital Signs Temp 97.8 F 05/31/18 08:22 Pulse 61 05/31/18 08:00 Resp 16 05/31/18 08:00 BP 136/66 05/31/18 08:00 Pulse Ox 96 05/31/18 08:00 Weight - Most Recent: 168 lb 1.6 oz Lab Results Last 24 Hours: Laboratory Results - last 24 hr 05/30/18 05/30/18 05/30/18 Range/Units 14:45 14:45 16:00 WBC 5.1 (5.0-10.0) 10^3/uL RBC 4.06 (4.00-5.50) 10^6/uL Hgb 12.2 (12.0-16.0) g/dL Hct 37.4 (37.0-47.0) % MCV 92.1 (82.0-94.0) fL MCH 30.0 (27.0-32.0) pg MCHC 32.6 L (33.0-38.0) g/dL RDW Coeff of Maritza 14.6 (11.0-15.0) % Plt Count 233 (150-400) 10^3/uL Neut % (Auto) 60.4 (35-85) % Lymph % (Auto) 27.9 (10-55) % [place] % (Auto) 8.3 (0-16) % Eos % (Auto) 2.4 (0-5) % Baso % (Auto) 1.0 (0-3) % Neut # (Auto) 3.08 (1.80-7.00) 10^3/uL Lymph # (Auto) 1.42 (1.00-4.80) 10^3/uL [place] # (Auto) 0.42 (0.00-0.80) 10^3/uL Eos # (Auto) 0.12 (0.00-0.45) 10^3/uL Baso # (Auto) 0.05 10^3/uL ESR 14 (0-20) mm/hr Sodium 146 H (136-145) mEq/L Potassium 4.4 (3.5-5.0) mEq/L Chloride 109 H (98-106) mEq/L Carbon Dioxide 29 (21-32) mmol/L BUN 24 H (7-18) mg/dL Creatinine 0.9 (0.6-1.0) mg/dL Est Cr Clr Drug Dosing TNP Estimated GFR (MDRD) 60 (>=60) mL/min Glucose 89 (75-99) mg/dL Calcium 9.4 (8.4-10.1) mg/dL Total Bilirubin 0.4 (0.0-1.0) mg/dL AST 33 (15-37) U/L ALT 22 (12-78) U/L Alkaline Phosphatase 100 (46-116) U/L Creatine Kinase 65 (21-215) U/L C-Reactive Protein < 0.2 L (0.2-0.8) mg/dL Total Protein 6.6 (6.4-8.2) g/dL Albumin 3.7 (3.4-5.0) g/dL Urine Color Straw (YELLOW) Urine Appearance Slightly cloudy (CLEAR) Urine pH 6.0 (4.5-8.0) Ur Specific [place] 1.020 (1.003-1.020) Urine Protein Negative (NEGATIVE) mg/dL Urine Glucose (UA) Negative (NEGATIVE) mg/dL Urine Ketones Negative (NEGATIVE) mg/dL Urine Occult Blood Trace-intact H (NEGATIVE) Urine Nitrite Negative (NEGATIVE) Urine Bilirubin Negative (NEGATIVE) Urine Urobilinogen 1.0 (0.2-1.0) EU/dL Ur Leukocyte Esterase Small H (NEGATIVE) Urine RBC 0-5 (0-5) /HPF Urine WBC 5-10 H (0-5) /HPF Ur Epithelial Cells Few H (NOT SEEN) /HPF 05/31/18 Range/Units 08:03 WBC (5.0-10.0) 10^3/uL RBC (4.00-5.50) 10^6/uL Hgb (12.0-16.0) g/dL Hct (37.0-47.0) % MCV (82.0-94.0) fL MCH (27.0-32.0) pg MCHC (33.0-38.0) g/dL RDW Coeff of Maritza (11.0-15.0) % Plt Count (150-400) 10^3/uL Neut % (Auto) (35-85) % Lymph % (Auto) (10-55) % [place] % (Auto) (0-16) % Eos % (Auto) (0-5) % Baso % (Auto) (0-3) % Neut # (Auto) (1.80-7.00) 10^3/uL Lymph # (Auto) (1.00-4.80) 10^3/uL [place] # (Auto) (0.00-0.80) 10^3/uL Eos # (Auto) (0.00-0.45) 10^3/uL Baso # (Auto) 10^3/uL ESR (0-20) mm/hr Sodium 147 H (136-145) mEq/L Potassium 4.3 (3.5-5.0) mEq/L Chloride 112 H (98-106) mEq/L Carbon Dioxide 29 (21-32) mmol/L BUN 20 H (7-18) mg/dL Creatinine 0.9 (0.6-1.0) mg/dL Est Cr Clr Drug Dosing 45.25 Estimated GFR (MDRD) 60 (>=60) mL/min Glucose 87 (75-99) mg/dL Calcium 9.2 (8.4-10.1) mg/dL Total Bilirubin (0.0-1.0) mg/dL AST (15-37) U/L ALT (12-78) U/L Alkaline Phosphatase (46-116) U/L Creatine Kinase (21-215) U/L C-Reactive Protein (0.2-0.8) mg/dL Total Protein (6.4-8.2) g/dL Albumin (3.4-5.0) g/dL Urine Color (YELLOW) Urine Appearance (CLEAR) Urine pH (4.5-8.0) Ur Specific [place] (1.003-1.020) Urine Protein (NEGATIVE) mg/dL Urine Glucose (UA) (NEGATIVE) mg/dL Urine Ketones (NEGATIVE) mg/dL Urine Occult Blood (NEGATIVE) Urine Nitrite (NEGATIVE) Urine Bilirubin (NEGATIVE) Urine Urobilinogen (0.2-1.0) EU/dL Ur Leukocyte Esterase (NEGATIVE) Urine RBC (0-5) /HPF Urine WBC (0-5) /HPF Ur Epithelial Cells (NOT SEEN) /HPF Med Orders - Current: Current Medications Acetaminophen (Tylenol Extra Strength) 500 mg PO TID [facility] Last Admin: 05/31/18 08:22 Dose: 500 mg Aspirin (Aspirin) 81 mg PO DAILY [facility] Last Admin: 05/31/18 08:23 Dose: 81 mg Ceftriaxone Sodium (Rocephin) 1 gm IVPUSH DAILY@1600 [facility] Last Admin: 05/30/18 17:06 Dose: 1 gm Docusate Sodium (Colace) 100 mg PO DAILY [facility] Last Admin: 05/31/18 08:22 Dose: 100 mg Enoxaparin Sodium (Lovenox) 40 mg SUBCUT DAILY@1600 [facility] Last Admin: 05/30/18 16:04 Dose: 40 mg Gabapentin (Neurontin) 100 mg PO TID [facility] Last Admin: 05/31/18 08:23 Dose: 100 mg Magnesium Hydroxide (Milk Of Magnesia) 30 ml PO Q12H PRN PRN Reason: Constipation Meloxicam (Mobic) 7.5 mg PO DAILY [facility] Last Admin: 05/31/18 08:22 Dose: 7.5 mg Mirtazapine (Remeron) 7.5 mg PO BEDTIME [facility] Last Admin: 05/30/18 20:16 Dose: 7.5 mg Polyethylene Glycol (Miralax) 17 gm PO DAILY [facility] Last Admin: 05/31/18 08:23 Dose: 17 gm Sodium Chloride (Saline Flush) 10 ml FLUSH ASDIRECTED PRN PRN Reason: Keep Vein Open Discontinued Medications Sodium Chloride (Normal Saline) 1,000 mls @ 75 mls/hr IV ASDIRECTED [facility] Stop: 05/31/18 05:49 Last Admin: 05/30/18 17:06 Dose: 75 mls/hr - Exam General: Alert, Oriented HEENT: Mucous Membr. Moist/[place] Neck: Supple Lungs: Clear to Auscultation, Normal Respiratory Effort Cardiovascular: Regular Rate, Regular Rhythm GI/Abdominal Exam: Normal Bowel Sounds, Soft, Non-Tender Extremities: Limited Range of Motion (cervical spine) Skin: Warm, Dry Neurological: No New Focal Deficit - Problem List & Annotations (1) Weakness SNOMED Code(s): 80603818 Code(s): R53.1 - WEAKNESS Status: Acute Priority: High Current Visit: Yes (2) Unsteady gait SNOMED Code(s): 09695959, 208424221 Code(s): R26.81 - UNSTEADINESS ON FEET Status: Acute Priority: High Current Visit: Yes - Problem List Review Problem List Initiated/Reviewed/Updated: Yes - Assessment Assessment:: Weakness Unsteady Gait - Plan Plan:: Patient stable this am. Does continue to have burning in her feet. States did improve for short period of time but "put slippers back on and feet immediately started burning". Has limited range of motion of her neck. History of spinal stenosis, CT done yesterday with concerns for more acute changes of this, awaiting results. Patient admits it is very hard to ambulate, "feels like can' t bear any weight on legs and don't work as she wants them too". Tried to ambulate to bathroom last evening without success. Will obtain CT report of neck today and consult with neurosurgery if changes. Hold Tramadol due to potential concerns with serotinin changes while on Remeron as well. Continue Gabapentin for the neuropathy. Physical therapy consult today.
[2018-05-31] MEDS: cefTRIAXone 1 GM Vial IVPUSH SCH (16:10)
[2018-05-31] MEDS: Enoxaparin 40 MG/0.4 ML Syringe SUBCUT SCH (16:11)
[2018-05-31] MEDS: **PTOM** Mirtazapine 15 MG Tab PO SCH (19:55)
[2018-06-01] MEDS: **PTOM** Gabapentin 100 MG Cap PO SCH ×3 (08:02→19:28)
[2018-06-01] MEDS: Meloxicam 7.5 MG Tab PO SCH (08:02)
[2018-06-01] MEDS: Polyethylene Glycol 3350 Powder 17 GM Packet PO SCH (08:16)
[2018-06-01] MEDS: Aspirin 81 MG Tab.Chew PO SCH (08:16)
[2018-06-01] MEDS: Acetaminophen 500 MG Tab PO SCH ×3 (08:17→19:30)
[2018-06-01] MEDS: Docusate Sodium 100 MG Cap PO SCH (08:17)
--- NOTE | 2018-06-01 08:28 | PCM.PN ---
- General Info Date of Service: 06/01/18 Admission Dx/Problem (Free Text): Weakness Unsteady gait Functional Status: Reports: Pain Controlled, Tolerating Diet, Ambulating - Review of Systems General: Reports: Weakness. Denies: Fever, Fatigue, Malaise HEENT: Reports: No Symptoms Pulmonary: Denies: Shortness of Breath, Cough Cardiovascular: Denies: Chest Pain, Edema, Lightheadedness Gastrointestinal: Reports: No Symptoms Genitourinary: Reports: No Symptoms Musculoskeletal: Reports: Neck Pain, Back Pain, Leg Pain Skin: Reports: No Symptoms Neurological: Reports: Weakness - Patient Data Vitals - Most Recent: Last Vital Signs Temp 96.4 F 06/01/18 04:00 Pulse 57 L 06/01/18 04:00 Resp 20 06/01/18 04:00 BP 142/55 H 06/01/18 04:00 Pulse Ox 97 06/01/18 04:00 Weight - Most Recent: 168 lb 1.6 oz I&O - Last 24 Hours: Intake & Output 05/31/18 06/01/18 06/01/18 22:59 06:59 14:59 Intake Total 200 Balance 200 Lab Results Last 24 Hours: Laboratory Results - last 24 hr 06/01/18 Range/Units 07:55 Sodium 146 H (136-145) mEq/L Potassium 4.4 (3.5-5.0) mEq/L Chloride 110 H (98-106) mEq/L Carbon Dioxide 30 (21-32) mmol/L BUN 18 (7-18) mg/dL Creatinine 1.0 (0.6-1.0) mg/dL Est Cr Clr Drug Dosing 40.72 mL/min Estimated GFR (MDRD) 53 L (>=60) mL/min Glucose 89 (75-99) mg/dL Calcium 9.4 (8.4-10.1) mg/dL Hussein Results Last 24 Hours: Microbiology 05/30/18 16:00 Urine Culture - Preliminary Urine, Voided Med Orders - Current: Current Medications Acetaminophen (Tylenol Extra Strength) 500 mg PO TID [facility] Last Admin: 06/01/18 08:17 Dose: 500 mg Aspirin (Aspirin) 81 mg PO DAILY [facility] Last Admin: 06/01/18 08:16 Dose: 81 mg Carbidopa/Levodopa (Sinemet 25-100 Mg) 1 tab PO BID [facility] Ceftriaxone Sodium (Rocephin) 1 gm IVPUSH DAILY@1600 [facility] Last Admin: 05/31/18 16:10 Dose: 1 gm Docusate Sodium (Colace) 100 mg PO DAILY [facility] Last Admin: 06/01/18 08:17 Dose: Not Given Enoxaparin Sodium (Lovenox) 40 mg SUBCUT DAILY@1600 [facility] Last Admin: 05/31/18 16:11 Dose: 40 mg Gabapentin (Neurontin) 100 mg PO TID [facility] Last Admin: 06/01/18 08:02 Dose: 100 mg Magnesium Hydroxide (Milk Of Magnesia) 30 ml PO Q12H PRN PRN Reason: Constipation Meloxicam (Mobic) 7.5 mg PO DAILY [facility] Last Admin: 06/01/18 08:02 Dose: 7.5 mg Mirtazapine (Remeron) 7.5 mg PO BEDTIME [facility] Last Admin: 05/31/18 19:55 Dose: 7.5 mg Polyethylene Glycol (Miralax) 17 gm PO DAILY [facility] Last Admin: 06/01/18 08:16 Dose: 17 gm Sodium Chloride (Saline Flush) 10 ml FLUSH ASDIRECTED PRN PRN Reason: Keep Vein Open Discontinued Medications Sodium Chloride (Normal Saline) 1,000 mls @ 75 mls/hr IV ASDIRECTED [facility] Stop: 05/31/18 05:49 Last Admin: 05/30/18 17:06 Dose: 75 mls/hr - Exam General: Alert, Oriented HEENT: Mucous Membr. Moist/[place] Neck: Supple Lungs: Clear to Auscultation, Normal Respiratory Effort Cardiovascular: Regular Rate, Regular Rhythm GI/Abdominal Exam: Normal Bowel Sounds, Soft, Non-Tender Extremities: Normal Inspection, Pedal Edema (trace of edema bilaterally) Skin: Warm, Dry Neurological: No New Focal Deficit - Problem List & Annotations (1) Weakness SNOMED Code(s): 13764300 Code(s): R53.1 - WEAKNESS Status: Acute Priority: High Current Visit: Yes (2) Unsteady gait SNOMED Code(s): 65660582, 284423232 Code(s): R26.81 - UNSTEADINESS ON FEET Status: Acute Priority: High Current Visit: Yes - Problem List Review Problem List Initiated/Reviewed/Updated: Yes - My Orders Last 24 Hours: My Active Orders 06/01/18 08:16 Cervical Spine Comp w Cont [MR] Routine Lumbar Spine Comp wo Cont [MR] Routine 06/01/18 08:30 Carbidopa/Levodopa [Sinemet 25-100 mg] 1 tab PO BID - Assessment Assessment:: Weakness Unsteady Gait - Plan Plan:: Patient stable this am. Does continue to have burning in her feet. States did improve for short period of time but "put slippers back on and feet immediately started burning". Has limited range of motion of her neck. History of spinal stenosis, CT done yesterday with concerns for more acute changes of this, awaiting results. Patient admits it is very hard to ambulate, "feels like can' t bear any weight on legs and don't work as she wants them too". Tried to ambulate to bathroom last evening without success. Will obtain CT report of neck today and consult with neurosurgery if changes. Hold Tramadol due to potential concerns with serotinin changes while on Remeron as well. Continue Gabapentin for the neuropathy. Physical therapy consult today. 06-01-2019 Patient is up and ambulating short distances with staff, doing well per nursing. No pain in her feet last night. Does have back pain this am. Continues to have decreased range of motion to her neck. CT scan negative for acute changes. BMP stable, sodium at 146 today. Will transfer to acute status. Continue PT. Add Sinemet to determine if helps gait. Continue gabapentin. Schedule MRI of lumbar and cervical spine on Monday if continues to have ongoing gait issues and weakness in her legs.
[2018-06-01] MEDS: Carbidopa/Levodopa 25-100 MG Tab PO SCH ×2 (10:26→19:28)
[2018-06-01] MEDS: cefTRIAXone 1 GM Vial IVPUSH SCH (16:08)
[2018-06-01] MEDS: Enoxaparin 40 MG/0.4 ML Syringe SUBCUT SCH (16:08)
[2018-06-01] MEDS: **PTOM** Mirtazapine 15 MG Tab PO SCH (19:28)
[2018-06-02] MEDS: Docusate Sodium 100 MG Cap PO SCH (07:29)
[2018-06-02] MEDS: Polyethylene Glycol 3350 Powder 17 GM Packet PO SCH (07:29)
[2018-06-02] MEDS: Acetaminophen 500 MG Tab PO SCH ×3 (07:30→19:08)
[2018-06-02] MEDS: **PTOM** Gabapentin 100 MG Cap PO SCH ×3 (07:30→19:06)
[2018-06-02] MEDS: Aspirin 81 MG Tab.Chew PO SCH (07:30)
[2018-06-02] MEDS: Carbidopa/Levodopa 25-100 MG Tab PO SCH ×2 (07:30→19:06)
[2018-06-02] MEDS: Meloxicam 7.5 MG Tab PO SCH (07:31)
--- NOTE | 2018-06-02 13:45 | PCM.PN ---
- General Info Date of Service: 06/02/18 Admission Dx/Problem (Free Text): Weakness Unsteady gait Subjective Update: Philly reports she is feeling well this morning. Does report she was able to ambulate in the halls yesterday. She reports she is better during the day, but at nighttime she struggles more with ambulating. Denies any other complaints. She is resting comfortably in her chair. Nursing voices no concerns. Functional Status: Reports: Pain Controlled, Tolerating Diet, Ambulating, Urinating. Denies: New Symptoms - Review of Systems General: Reports: Weakness, Fatigue. Denies: Fever, Chills HEENT: Reports: Other (runny nose) Pulmonary: Reports: No Symptoms Cardiovascular: Reports: Edema. Denies: Chest Pain, Palpitations, Dyspnea on Exertion, Lightheadedness Gastrointestinal: Reports: No Symptoms Genitourinary: Reports: No Symptoms Musculoskeletal: Reports: Neck Pain, Back Pain Skin: Reports: No Symptoms Neurological: Reports: Difficulty Walking (more at night), Weakness. Denies: Confusion, Dizziness, Headache, Numbness, Tingling Psychiatric: Reports: No Symptoms - Patient Data Vitals - Most Recent: Last Vital Signs Temp 97.8 F 06/02/18 12:00 Pulse 52 L 06/02/18 12:00 Resp 16 06/02/18 12:00 BP 126/62 06/02/18 12:00 Pulse Ox 97 06/02/18 12:00 Weight - Most Recent: 168 lb 1.6 oz I&O - Last 24 Hours: Intake & Output 06/01/18 06/02/18 06/02/18 22:59 06:59 14:59 Intake Total 400 200 Balance 400 200 Hussein Results Last 24 Hours: Microbiology 05/30/18 16:00 Urine Culture - Final Urine, Voided Med Orders - Current: Current Medications Acetaminophen (Tylenol Extra Strength) 500 mg PO TID [facility] Last Admin: 06/02/18 13:19 Dose: 500 mg Aspirin (Aspirin) 81 mg PO DAILY [facility] Last Admin: 06/02/18 07:30 Dose: 81 mg Carbidopa/Levodopa (Sinemet 25-100 Mg) 1 tab PO BID [facility] Last Admin: 06/02/18 07:30 Dose: 1 tab Ceftriaxone Sodium (Rocephin) 1 gm IVPUSH DAILY@1600 [facility] Last Admin: 06/01/18 16:08 Dose: 1 gm Docusate Sodium (Colace) 100 mg PO DAILY [facility] Last Admin: 06/02/18 07:29 Dose: 100 mg Enoxaparin Sodium (Lovenox) 40 mg SUBCUT DAILY@1600 [facility] Last Admin: 06/01/18 16:08 Dose: 40 mg Gabapentin (Neurontin) 100 mg PO TID [facility] Last Admin: 06/02/18 13:19 Dose: 100 mg Magnesium Hydroxide (Milk Of Magnesia) 30 ml PO Q12H PRN PRN Reason: Constipation Meloxicam (Mobic) 7.5 mg PO DAILY [facility] Last Admin: 06/02/18 07:31 Dose: 7.5 mg Mirtazapine (Remeron) 7.5 mg PO BEDTIME [facility] Last Admin: 06/01/18 19:28 Dose: 7.5 mg Polyethylene Glycol (Miralax) 17 gm PO DAILY [facility] Last Admin: 06/02/18 07:29 Dose: 17 gm Sodium Chloride (Saline Flush) 10 ml FLUSH ASDIRECTED PRN PRN Reason: Keep Vein Open Discontinued Medications Sodium Chloride (Normal Saline) 1,000 mls @ 75 mls/hr IV ASDIRECTED [facility] Stop: 05/31/18 05:49 Last Admin: 05/30/18 17:06 Dose: 75 mls/hr - Exam Quality Assessment: DVT Prophylaxis General: Alert, Oriented, No Acute Distress HEENT: Pupils Equal, Pupils Reactive, EOMI, Mucous Membr. Moist/[place] Neck: Supple Lungs: Clear to Auscultation, Normal Respiratory Effort Cardiovascular: Regular Rate, Regular Rhythm GI/Abdominal Exam: Normal Bowel Sounds, Soft, Non-Tender, No Organomegaly, No Distention, No Abnormal Bruit, No Mass, Pelvis Stable Extremities: Pedal Edema Peripheral Pulses: 2+: Dorsalis Pedis (L), Dorsalis Pedis (R) Skin: Warm, Dry, Intact Neurological: No New Focal Deficit, Strength Equal Bilateral Psy/Mental Status: Alert, Normal Affect, Normal Mood - Problem List & Annotations (1) Unsteady gait SNOMED Code(s): 20186860, [id number] Code(s): R26.81 - UNSTEADINESS ON FEET Status: Acute Priority: High Current Visit: Yes (2) Weakness SNOMED Code(s): 85383257 Code(s): R53.1 - WEAKNESS Status: Acute Priority: High Current Visit: Yes - Problem List Review Problem List Initiated/Reviewed/Updated: Yes - Assessment Assessment:: Weakness Unsteady Gait - Plan Plan:: 05-31-2018 Patient stable this am. Does continue to have burning in her feet. States did improve for short period of time but "put slippers back on and feet immediately started burning". Has limited range of motion of her neck. History of spinal stenosis, CT done yesterday with concerns for more acute changes of this, awaiting results. Patient admits it is very hard to ambulate, "feels like can' t bear any weight on legs and don't work as she wants them too". Tried to ambulate to bathroom last evening without success. Will obtain CT report of neck today and consult with neurosurgery if changes. Hold Tramadol due to potential concerns with serotinin changes while on Remeron as well. Continue Gabapentin for the neuropathy. Physical therapy consult today. 06-01-2019 Patient is up and ambulating short distances with staff, doing well per nursing. No pain in her feet last night. Does have back pain this am. Continues to have decreased range of motion to her neck. CT scan negative for acute changes. BMP stable, sodium at 146 today. Will transfer to acute status. Continue PT. Add Sinemet to determine if helps gait. Continue gabapentin. Schedule MRI of lumbar and cervical spine on Monday if continues to have ongoing gait issues and weakness in her legs. 06-02-2018 Patient has been up ambulating in halls and around nurses station with staff. Nursing reports she is doing well, but gait does worsen in evening when she is more tired. She denies pain in her feet. Continues to c/o back pain and some neck pain when questioned. Patient is able to lift bilateral legs from chair without difficulty. Strength 4/5 to BLE. Continue physical therapy and ambulating with nursing staff. No changes noted as of yet with addition of Sinemet, but patient has been doing well. Continue gabapentin. We will await MRI of cervical and lumbar spine on Monday if gait issues continue. Plan of care was discussed with patient who verbalized understanding and was agreeable with plan. Anticipate discharge following MRI in 2-3 days.
[2018-06-02] MEDS: Enoxaparin 40 MG/0.4 ML Syringe SUBCUT SCH (16:32)
[2018-06-02] MEDS: cefTRIAXone 1 GM Vial IVPUSH SCH (16:33)
[2018-06-02] MEDS: **PTOM** Mirtazapine 15 MG Tab PO SCH (19:06)
[2018-06-03] MEDS: Polyethylene Glycol 3350 Powder 17 GM Packet PO SCH (07:39)
[2018-06-03] MEDS: **PTOM** Gabapentin 100 MG Cap PO SCH ×3 (07:39→19:26)
[2018-06-03] MEDS: Meloxicam 7.5 MG Tab PO SCH (07:39)
[2018-06-03] MEDS: Aspirin 81 MG Tab.Chew PO SCH (07:39)
[2018-06-03] MEDS: Acetaminophen 500 MG Tab PO SCH ×3 (07:40→19:26)
[2018-06-03] MEDS: Carbidopa/Levodopa 25-100 MG Tab PO SCH ×2 (07:40→19:26)
[2018-06-03] MEDS: Docusate Sodium 100 MG Cap PO SCH (07:40)
--- NOTE | 2018-06-03 13:10 | PCM.PN ---
- General Info Date of Service: 06/03/18 Admission Dx/Problem (Free Text): Weakness Unsteady gait Subjective Update: Patient reports she is feeling 90% better today. Nursing deny any concerns. Functional Status: Reports: Pain Controlled, Tolerating Diet, Ambulating, Urinating. Denies: New Symptoms - Review of Systems General: Reports: No Symptoms. Denies: Fever, Weakness, Chills HEENT: Reports: Other (runny nose). Denies: Sinus Congestion, Sore Throat Pulmonary: Reports: No Symptoms Cardiovascular: Reports: No Symptoms Gastrointestinal: Reports: No Symptoms Genitourinary: Reports: No Symptoms Musculoskeletal: Reports: No Symptoms. Denies: Neck Pain, Back Pain, Leg Pain Skin: Reports: No Symptoms Neurological: Reports: No Symptoms Psychiatric: Reports: No Symptoms - Patient Data Vitals - Most Recent: Last Vital Signs Temp 98.5 F 06/03/18 12:00 Pulse 56 L 06/03/18 12:00 Resp 16 06/03/18 12:00 BP 126/54 L 06/03/18 12:00 Pulse Ox 96 06/03/18 12:00 Weight - Most Recent: 168 lb 1.6 oz Med Orders - Current: Current Medications Acetaminophen (Tylenol Extra Strength) 500 mg PO TID [facility] Last Admin: 06/03/18 07:40 Dose: 500 mg Aspirin (Aspirin) 81 mg PO DAILY [facility] Last Admin: 06/03/18 07:39 Dose: 81 mg Carbidopa/Levodopa (Sinemet 25-100 Mg) 1 tab PO BID [facility] Last Admin: 06/03/18 07:40 Dose: 1 tab Ceftriaxone Sodium (Rocephin) 1 gm IVPUSH DAILY@1600 [facility] Last Admin: 06/02/18 16:33 Dose: 1 gm Docusate Sodium (Colace) 100 mg PO DAILY [facility] Last Admin: 06/03/18 07:40 Dose: 100 mg Enoxaparin Sodium (Lovenox) 40 mg SUBCUT DAILY@1600 [facility] Last Admin: 06/02/18 16:32 Dose: 40 mg Gabapentin (Neurontin) 100 mg PO TID [facility] Last Admin: 06/03/18 07:39 Dose: 100 mg Magnesium Hydroxide (Milk Of Magnesia) 30 ml PO Q12H PRN PRN Reason: Constipation Meloxicam (Mobic) 7.5 mg PO DAILY [facility] Last Admin: 06/03/18 07:39 Dose: 7.5 mg Mirtazapine (Remeron) 7.5 mg PO BEDTIME [facility] Last Admin: 06/02/18 19:06 Dose: 7.5 mg Polyethylene Glycol (Miralax) 17 gm PO DAILY [facility] Last Admin: 06/03/18 07:39 Dose: 17 gm Sodium Chloride (Saline Flush) 10 ml FLUSH ASDIRECTED PRN PRN Reason: Keep Vein Open Discontinued Medications Sodium Chloride (Normal Saline) 1,000 mls @ 75 mls/hr IV ASDIRECTED [facility] Stop: 05/31/18 05:49 Last Admin: 05/30/18 17:06 Dose: 75 mls/hr - Exam General: Alert, Oriented, No Acute Distress Neck: Supple Lungs: Clear to Auscultation, Normal Respiratory Effort Cardiovascular: Regular Rate, Regular Rhythm GI/Abdominal Exam: Normal Bowel Sounds, Soft, Non-Tender, No Organomegaly, No Distention, No Abnormal Bruit, No Mass, Pelvis Stable Back Exam: Normal Inspection, Decreased Range of Motion Extremities: Normal Capillary Refill, Pedal Edema (trace), Limited Range of Motion (BLE). No: Arm Pain, Leg Pain Peripheral Pulses: 2+: Dorsalis Pedis (L), Dorsalis Pedis (R) Skin: Warm, Dry, Intact Neurological: No New Focal Deficit Psy/Mental Status: Alert, Normal Affect, Normal Mood - Problem List & Annotations (1) Unsteady gait SNOMED Code(s): 54502045, [id number] Code(s): R26.81 - UNSTEADINESS ON FEET Status: Acute Priority: High Current Visit: Yes (2) Weakness SNOMED Code(s): 75425277 Code(s): R53.1 - WEAKNESS Status: Acute Priority: High Current Visit: Yes - Problem List Review Problem List Initiated/Reviewed/Updated: Yes - Assessment Assessment:: Weakness Unsteady Gait - Plan Plan:: 05-31-2018 Patient stable this am. Does continue to have burning in her feet. States did improve for short period of time but "put slippers back on and feet immediately started burning". Has limited range of motion of her neck. History of spinal stenosis, CT done yesterday with concerns for more acute changes of this, awaiting results. Patient admits it is very hard to ambulate, "feels like can' t bear any weight on legs and don't work as she wants them too". Tried to ambulate to bathroom last evening without success. Will obtain CT report of neck today and consult with neurosurgery if changes. Hold Tramadol due to potential concerns with serotinin changes while on Remeron as well. Continue Gabapentin for the neuropathy. Physical therapy consult today. 06-01-2019 Patient is up and ambulating short distances with staff, doing well per nursing. No pain in her feet last night. Does have back pain this am. Continues to have decreased range of motion to her neck. CT scan negative for acute changes. BMP stable, sodium at 146 today. Will transfer to acute status. Continue PT. Add Sinemet to determine if helps gait. Continue gabapentin. Schedule MRI of lumbar and cervical spine on Monday if continues to have ongoing gait issues and weakness in her legs. 06-02-2018 Patient has been up ambulating in halls and around nurses station with staff. Nursing reports she is doing well, but gait does worsen in evening when she is more tired. She denies pain in her feet. Continues to c/o back pain and some neck pain when questioned. Patient is able to lift bilateral legs from chair without difficulty. Strength 4/5 to BLE. Continue physical therapy and ambulating with nursing staff. No changes noted as of yet with addition of Sinemet, but patient has been doing well. Continue gabapentin. We will await MRI of cervical and lumbar spine on Monday if gait issues continue. Plan of care was discussed with patient who verbalized understanding and was agreeable with plan. Anticipate discharge following MRI in 2-3 days. 06-03-2018 [place]ly reports her ambulating is 90% improved. She has been walking in the halls with nursing staff. Does report when she slows down or stops her "legs get jumpy " but if she keeps going she walks just fine. She denies any pain, numbness, or tingling in her legs. Reports her neck and back pain have went away as well. Patient's gait worsens in evening when she is more tired. We will continue physical therapy and ambulating with nursing staff. Patient has improved greatly since admission. Will continue Sinemet and gabapentin. See how patient does over the next few days. If gait continue to improve we can likely avoid MRI, but for now will keep her scheduled should she need imaging. Plan of care was discussed with patient who verbalized understanding and was agreeable with plan. Anticipate discharge 2-3 days. If gait continues to improve , then d/c sooner.
[2018-06-03] MEDS: Enoxaparin 40 MG/0.4 ML Syringe SUBCUT SCH (16:11)
[2018-06-03] MEDS: cefTRIAXone 1 GM Vial IVPUSH SCH (16:11)
[2018-06-03] MEDS: **PTOM** Mirtazapine 15 MG Tab PO SCH (19:25)
[2018-06-04] MEDS: Carbidopa/Levodopa 25-100 MG Tab PO SCH ×2 (08:35→19:41)
[2018-06-04] MEDS: **PTOM** Gabapentin 100 MG Cap PO SCH ×3 (08:35→19:41)
[2018-06-04] MEDS: Docusate Sodium 100 MG Cap PO SCH (08:35)
[2018-06-04] MEDS: Acetaminophen 500 MG Tab PO SCH ×3 (08:35→19:41)
[2018-06-04] MEDS: Aspirin 81 MG Tab.Chew PO SCH (08:35)
[2018-06-04] MEDS: Meloxicam 7.5 MG Tab PO SCH (08:35)
[2018-06-04] MEDS: Polyethylene Glycol 3350 Powder 17 GM Packet PO SCH (08:35)
[2018-06-04] MEDS: cefTRIAXone 1 GM Vial IVPUSH SCH (16:42)
[2018-06-04] MEDS: Enoxaparin 40 MG/0.4 ML Syringe SUBCUT SCH (16:42)
--- NOTE | 2018-06-04 19:17 | PCM.PN ---
- General Info Date of Service: 06/04/18 Admission Dx/Problem (Free Text): Weakness Unsteady gait Functional Status: Reports: Pain Controlled, Tolerating Diet, Ambulating - Review of Systems General: Reports: Weakness. Denies: Fever, Fatigue, Malaise HEENT: Reports: No Symptoms Pulmonary: Denies: Shortness of Breath, Cough Cardiovascular: Denies: Chest Pain, Edema, Lightheadedness Gastrointestinal: Denies: Abdominal Pain, Nausea, Vomiting Genitourinary: Reports: No Symptoms Musculoskeletal: Reports: Neck Pain, Back Pain, Leg Pain Skin: Reports: No Symptoms Neurological: Reports: Weakness - Patient Data Vitals - Most Recent: Last Vital Signs Temp 96.4 F 06/04/18 07:26 Pulse 61 06/04/18 07:26 Resp 18 06/04/18 07:26 BP 136/59 L 06/04/18 07:26 Pulse Ox 96 06/04/18 07:26 Weight - Most Recent: 168 lb 1.6 oz Med Orders - Current: Current Medications Acetaminophen (Tylenol Extra Strength) 500 mg PO TID [facility] Last Admin: 06/04/18 13:44 Dose: 500 mg Aspirin (Aspirin) 81 mg PO DAILY [facility] Last Admin: 06/04/18 08:35 Dose: 81 mg Carbidopa/Levodopa (Sinemet 25-100 Mg) 1 tab PO BID [facility] Last Admin: 06/04/18 08:35 Dose: 1 tab Ceftriaxone Sodium (Rocephin) 1 gm IVPUSH DAILY@1600 [facility] Last Admin: 06/04/18 16:42 Dose: 1 gm Docusate Sodium (Colace) 100 mg PO DAILY [facility] Last Admin: 06/04/18 08:35 Dose: 100 mg Enoxaparin Sodium (Lovenox) 40 mg SUBCUT DAILY@1600 [facility] Last Admin: 06/04/18 16:42 Dose: 40 mg Gabapentin (Neurontin) 100 mg PO TID [facility] Last Admin: 06/04/18 13:44 Dose: 100 mg Magnesium Hydroxide (Milk Of Magnesia) 30 ml PO Q12H PRN PRN Reason: Constipation Meloxicam (Mobic) 7.5 mg PO DAILY [facility] Last Admin: 06/04/18 08:35 Dose: 7.5 mg Mirtazapine (Remeron) 7.5 mg PO BEDTIME [facility] Last Admin: 06/03/18 19:25 Dose: 7.5 mg Polyethylene Glycol (Miralax) 17 gm PO DAILY [facility] Last Admin: 06/04/18 08:35 Dose: 17 gm Sodium Chloride (Saline Flush) 10 ml FLUSH ASDIRECTED PRN PRN Reason: Keep Vein Open Discontinued Medications Sodium Chloride (Normal Saline) 1,000 mls @ 75 mls/hr IV ASDIRECTED [facility] Stop: 05/31/18 05:49 Last Admin: 05/30/18 17:06 Dose: 75 mls/hr - Exam General: Alert, Oriented HEENT: Mucous Membr. Moist/[place] Neck: Supple Lungs: Clear to Auscultation, Normal Respiratory Effort Cardiovascular: Regular Rate, Regular Rhythm GI/Abdominal Exam: Normal Bowel Sounds, Soft, Non-Tender Back Exam: Decreased Range of Motion (to lumbar and cervical spine) Extremities: Normal Inspection, No Pedal Edema Skin: Warm, Dry Neurological: No New Focal Deficit - Problem List & Annotations (1) Weakness SNOMED Code(s): 88715005 Code(s): R53.1 - WEAKNESS Status: Acute Priority: High Current Visit: Yes (2) Unsteady gait SNOMED Code(s): 69300470, 218898908 Code(s): R26.81 - UNSTEADINESS ON FEET Status: Acute Priority: High Current Visit: Yes - Problem List Review Problem List Initiated/Reviewed/Updated: Yes - Assessment Assessment:: Weakness Unsteady Gait - Plan Plan:: 05-31-2018 Patient stable this am. Does continue to have burning in her feet. States did improve for short period of time but "put slippers back on and feet immediately started burning". Has limited range of motion of her neck. History of spinal stenosis, CT done yesterday with concerns for more acute changes of this, awaiting results. Patient admits it is very hard to ambulate, "feels like can' t bear any weight on legs and don't work as she wants them too". Tried to ambulate to bathroom last evening without success. Will obtain CT report of neck today and consult with neurosurgery if changes. Hold Tramadol due to potential concerns with serotinin changes while on Remeron as well. Continue Gabapentin for the neuropathy. Physical therapy consult today. 06-01-2019 Patient is up and ambulating short distances with staff, doing well per nursing. No pain in her feet last night. Does have back pain this am. Continues to have decreased range of motion to her neck. CT scan negative for acute changes. BMP stable, sodium at 146 today. Will transfer to acute status. Continue PT. Add Sinemet to determine if helps gait. Continue gabapentin. Schedule MRI of lumbar and cervical spine on Monday if continues to have ongoing gait issues and weakness in her legs. 06-02-2018 Patient has been up ambulating in halls and around nurses station with staff. Nursing reports she is doing well, but gait does worsen in evening when she is more tired. She denies pain in her feet. Continues to c/o back pain and some neck pain when questioned. Patient is able to lift bilateral legs from chair without difficulty. Strength 4/5 to BLE. Continue physical therapy and ambulating with nursing staff. No changes noted as of yet with addition of Sinemet, but patient has been doing well. Continue gabapentin. We will await MRI of cervical and lumbar spine on Monday if gait issues continue. Plan of care was discussed with patient who verbalized understanding and was agreeable with plan. Anticipate discharge following MRI in 2-3 days. 06-03-2018 [place] reports her ambulating is 90% improved. She has been walking in the halls with nursing staff. Does report when she slows down or stops her "legs get jumpy " but if she keeps going she walks just fine. She denies any pain, numbness, or tingling in her legs. Reports her neck and back pain have went away as well. Patient's gait worsens in evening when she is more tired. We will continue physical therapy and ambulating with nursing staff. Patient has improved greatly since admission. Will continue Sinemet and gabapentin. See how patient does over the next few days. If gait continue to improve we can likely avoid MRI, but for now will keep her scheduled should she need imaging. Plan of care was discussed with patient who verbalized understanding and was agreeable with plan. Anticipate discharge 2-3 days. If gait continues to improve , then d/c sooner. 06-04-2018 Patient complains of more back pain again today, lower and mid back region. Staff reports she is ambulating well, just has difficulty getting up from bed and the chair herself. States legs feel heavy today. Feels related to ambulating more and more every day. She is aware of her need to provide all of her own cares [place] does believe [place] get there yet with time. Will proceed yet with MRIs tomorrow as continues to have intermittent pain. Will premedicate her in order for her tolerate the scan. Continue with Gabapentin and Sinemet until results received.
[2018-06-04] MEDS: **PTOM** Mirtazapine 15 MG Tab PO SCH (19:41)
[2018-06-05] MEDS: Acetaminophen 500 MG Tab PO SCH ×3 (07:58→19:55)
[2018-06-05] MEDS: **PTOM** Gabapentin 100 MG Cap PO SCH ×3 (07:59→19:55)
[2018-06-05] MEDS: Meloxicam 7.5 MG Tab PO SCH (07:59)
[2018-06-05] MEDS: Aspirin 81 MG Tab.Chew PO SCH (07:59)
[2018-06-05] MEDS: Carbidopa/Levodopa 25-100 MG Tab PO SCH ×2 (07:59→19:55)
[2018-06-05] MEDS: Polyethylene Glycol 3350 Powder 17 GM Packet PO SCH (07:59)
[2018-06-05] MEDS: Docusate Sodium 100 MG Cap PO SCH (07:59)
[2018-06-05] MEDS ORDERED: fentaNYL 100 MCG/2 ML SDV IVPUSH ONE (09:07)
[2018-06-05] MEDS ORDERED: LORazepam 2 MG/ML Syringe IVPUSH ONE (09:07)
[2018-06-05] MEDS: Enoxaparin 40 MG/0.4 ML Syringe SUBCUT SCH (16:46)
[2018-06-05] MEDS: cefTRIAXone 1 GM Vial IVPUSH SCH (16:46)
--- NOTE | 2018-06-05 19:31 | PCM.PN ---
- General Info Date of Service: 06/05/18 Admission Dx/Problem (Free Text): Weakness Unsteady gait Functional Status: Reports: Pain Controlled, Tolerating Diet, Ambulating - Review of Systems General: Reports: Weakness HEENT: Reports: No Symptoms Pulmonary: Denies: Shortness of Breath, Cough Cardiovascular: Denies: Chest Pain, Edema, Lightheadedness Gastrointestinal: Denies: Abdominal Pain, Nausea, Vomiting Genitourinary: Reports: No Symptoms Musculoskeletal: Reports: Neck Pain, Back Pain Skin: Reports: No Symptoms Neurological: Reports: Weakness - Patient Data Vitals - Most Recent: Last Vital Signs Temp 97.8 F 06/05/18 07:35 Pulse 57 L 06/05/18 07:35 Resp 18 06/05/18 07:35 BP 130/58 L 06/05/18 07:35 Pulse Ox 97 06/05/18 07:35 Weight - Most Recent: 168 lb 1.6 oz Med Orders - Current: Current Medications Acetaminophen (Tylenol Extra Strength) 500 mg PO TID [facility] Last Admin: 06/05/18 14:11 Dose: 500 mg Aspirin (Aspirin) 81 mg PO DAILY [facility] Last Admin: 06/05/18 07:59 Dose: 81 mg Carbidopa/Levodopa (Sinemet 25-100 Mg) 1 tab PO BID [facility] Last Admin: 06/05/18 07:59 Dose: 1 tab Ceftriaxone Sodium (Rocephin) 1 gm IVPUSH DAILY@1600 [facility] Last Admin: 06/05/18 16:46 Dose: 1 gm Docusate Sodium (Colace) 100 mg PO DAILY [facility] Last Admin: 06/05/18 07:59 Dose: 100 mg Enoxaparin Sodium (Lovenox) 40 mg SUBCUT DAILY@1600 [facility] Last Admin: 06/05/18 16:46 Dose: 40 mg Gabapentin (Neurontin) 100 mg PO TID [facility] Last Admin: 06/05/18 14:11 Dose: 100 mg Magnesium Hydroxide (Milk Of Magnesia) 30 ml PO Q12H PRN PRN Reason: Constipation Meloxicam (Mobic) 7.5 mg PO DAILY [facility] Last Admin: 06/05/18 07:59 Dose: 7.5 mg Mirtazapine (Remeron) 7.5 mg PO BEDTIME [facility] Last Admin: 06/04/18 19:41 Dose: 7.5 mg Polyethylene Glycol (Miralax) 17 gm PO DAILY [facility] Last Admin: 06/05/18 07:59 Dose: 17 gm Sodium Chloride (Saline Flush) 10 ml FLUSH ASDIRECTED PRN PRN Reason: Keep Vein Open Discontinued Medications Fentanyl (Sublimaze) 25 mcg IVPUSH ONETIME ONE Stop: 06/05/18 09:08 Last Admin: 06/05/18 13:05 Dose: Not Given Sodium Chloride (Normal Saline) 1,000 mls @ 75 mls/hr IV ASDIRECTED [facility] Stop: 05/31/18 05:49 Last Admin: 05/30/18 17:06 Dose: 75 mls/hr Lorazepam (Ativan) 1 mg IVPUSH ONETIME ONE Stop: 06/05/18 09:08 Last Admin: 06/05/18 11:04 Dose: 1 mg - Exam General: Alert, Oriented HEENT: Mucous Membr. Moist/[place] Neck: Supple Lungs: Clear to Auscultation, Normal Respiratory Effort Cardiovascular: Regular Rate, Regular Rhythm GI/Abdominal Exam: Normal Bowel Sounds, Soft, Non-Tender Extremities: Normal Inspection, No Pedal Edema Skin: Warm, Dry Neurological: No New Focal Deficit - Problem List & Annotations (1) Weakness SNOMED Code(s): 70480186 Code(s): R53.1 - WEAKNESS Status: Acute Priority: High Current Visit: Yes (2) Unsteady gait SNOMED Code(s): 78239881, 938253061 Code(s): R26.81 - UNSTEADINESS ON FEET Status: Acute Priority: High Current Visit: Yes - Problem List Review Problem List Initiated/Reviewed/Updated: Yes - My Orders Last 24 Hours: My Active Orders 06/05/18 08:16 Cervical Spine Comp wo Cont [MR] Routine Lumbar Spine Comp wo Cont [MR] Routine - Assessment Assessment:: Weakness Unsteady Gait - Plan Plan:: 05-31-2018 Patient stable this am. Does continue to have burning in her feet. States did improve for short period of time but "put slippers back on and feet immediately started burning". Has limited range of motion of her neck. History of spinal stenosis, CT done yesterday with concerns for more acute changes of this, awaiting results. Patient admits it is very hard to ambulate, "feels like can' t bear any weight on legs and don't work as she wants them too". Tried to ambulate to bathroom last evening without success. Will obtain CT report of neck today and consult with neurosurgery if changes. Hold Tramadol due to potential concerns with serotinin changes while on Remeron as well. Continue Gabapentin for the neuropathy. Physical therapy consult today. 06-01-2019 Patient is up and ambulating short distances with staff, doing well per nursing. No pain in her feet last night. Does have back pain this am. Continues to have decreased range of motion to her neck. CT scan negative for acute changes. BMP stable, sodium at 146 today. Will transfer to acute status. Continue PT. Add Sinemet to determine if helps gait. Continue gabapentin. Schedule MRI of lumbar and cervical spine on Monday if continues to have ongoing gait issues and weakness in her legs. 06-02-2018 Patient has been up ambulating in halls and around nurses station with staff. Nursing reports she is doing well, but gait does worsen in evening when she is more tired. She denies pain in her feet. Continues to c/o back pain and some neck pain when questioned. Patient is able to lift bilateral legs from chair without difficulty. Strength 4/5 to BLE. Continue physical therapy and ambulating with nursing staff. No changes noted as of yet with addition of Sinemet, but patient has been doing well. Continue gabapentin. We will await MRI of cervical and lumbar spine on Monday if gait issues continue. Plan of care was discussed with patient who verbalized understanding and was agreeable with plan. Anticipate discharge following MRI in 2-3 days. 06-03-2018 [place] reports her ambulating is 90% improved. She has been walking in the halls with nursing staff. Does report when she slows down or stops her "legs get jumpy " but if she keeps going she walks just fine. She denies any pain, numbness, or tingling in her legs. Reports her neck and back pain have went away as well. Patient's gait worsens in evening when she is more tired. We will continue physical therapy and ambulating with nursing staff. Patient has improved greatly since admission. Will continue Sinemet and gabapentin. See how patient does over the next few days. If gait continue to improve we can likely avoid MRI, but for now will keep her scheduled should she need imaging. Plan of care was discussed with patient who verbalized understanding and was agreeable with plan. Anticipate discharge 2-3 days. If gait continues to improve , then d/c sooner. 06-04-2018 Patient complains of more back pain again today, lower and mid back region. Staff reports she is ambulating well, just has difficulty getting up from bed and the chair herself. States legs feel heavy today. Feels related to ambulating more and more every day. She is aware of her need to provide all of her own cares in order for her to return back to the [facility] and does believe she can get there yet with time. Will proceed yet with MRIs tomorrow as continues to have intermittent pain. Will premedicate her in order for her tolerate the scan. Continue with Gabapentin and Sinemet until results received. 06-05-2018 Patient states does have back pain when getting up from the bed this am but is better once up in chair. She is ambulating better and better each day. PT does worry about her knees giving out at times but strength is improving. Has most difficulty with getting up from chair and bed. Will give Fentanyl and Ativan prior to MRI today to increase tolerance. Continue inpatient stay until MRI reports received, hopefully by am and plan to transfer to swing bed stay for ongoing PT if no acute changes noted. Unable to completely care for self yet at the [facility]. Family aware of plan.
[2018-06-05] MEDS: **PTOM** Mirtazapine 15 MG Tab PO SCH (19:54)
[2018-06-06] MEDS: Polyethylene Glycol 3350 Powder 17 GM Packet PO SCH (08:00)
[2018-06-06] MEDS: Acetaminophen 500 MG Tab PO SCH (08:01)
[2018-06-06] MEDS: Meloxicam 7.5 MG Tab PO SCH (08:01)
[2018-06-06] MEDS: Carbidopa/Levodopa 25-100 MG Tab PO SCH (08:01)
[2018-06-06] MEDS: Aspirin 81 MG Tab.Chew PO SCH (08:01)
[2018-06-06] MEDS: Docusate Sodium 100 MG Cap PO SCH (08:01)
[2018-06-06] MEDS: **PTOM** Gabapentin 100 MG Cap PO SCH (08:02)
--- NOTE | 2018-06-06 15:20 | PCM.DCSUM1 ---
Discharge Summary - Hospital Course Free Text/Narrative:: Patient was admitted from the clinic per Amy to observation due to weakness , shuffling gait and concern for fall. Has ongoing neck and back pain. Family had reported that was having more issues with her gait and being unsteady for the last 3-4 weeks. She has had difficulty getting in an dout of bed, legs have been jumping. She reports that on day of admit, Legs "just didn't seem to want to work". She did have labs in the clinic. Urine positive, culture ordered. Other labs essentially normal. CT scan of neck was done with no acute changes noted. Admitted and started on IV Rocephin. Physical therapy. Hold Tramadol due to concern with possible interaction with Remeron. Diagnosis: Stroke: No Modified [place] Scale: No Symptoms at All Modified Justin Scale Score: 0 - Discharge Data Discharge Date: 06/06/18 Discharge Disposition: DC/Tfer W/I Hosp To Swing Condition: Good - Discharge Diagnosis/Problem(s) (1) Weakness SNOMED Code(s): 57233166 ICD Code: R53.1 - WEAKNESS Status: Acute Priority: High (2) Unsteady gait SNOMED Code(s): 77585619, 470590660 ICD Code: R26.81 - UNSTEADINESS ON FEET Status: Acute Priority: High - Patient Summary/Data Complications: none Consults: Consultations 05/30/18 15:13 PT Evaluation and Treatment [CONS] Routine Hospital Course: Patient has had slow improvement of overall status. Is ambulating much better now. Has some difficulty getting out of bed or chair in the am but is improving. Was started on Sinemet and it has seemed to help her gait and her speech. Is ambulating farther distances with PT. She did have a MRI of her neck and lumbar spine that do show significant degenerative concerns but no acute issues with spinal stenosis. Labs have remained stable through stay. Will transfer to swing bed status for ongoing physical therapy [place] - Patient Instructions Diet: Usual Diet as Tolerated Activity: As Tolerated - Discharge Plan *PRESCRIPTION DRUG MONITORING PROGRAM REVIEWED*: No *COPY OF PRESCRIPTION DRUG MONITORING REPORT IN PATIENT KIRBY: No Home Medications: Home Meds Aspirin [Children's Aspirin] 81 mg PO DAILY 09/14/17 [History] Docusate Sodium [Stool Softener] 100 mg PO DAILY 09/14/17 [History] Acetaminophen [Tylenol Extra Strength] 500 mg PO TID #90 tablet 09/19/17 [Rx] Polyethylene Glycol 3350 [MiraLAX] 17 gm PO DAILY #30 packet 09/19/17 [Rx] Gabapentin [Neurontin] 100 mg PO TID 05/30/18 [History] Mirtazapine [Remeron] 7.5 mg PO BEDTIME 05/30/18 [History] - Discharge Summary/Plan Comment DC Time >30 min.: No Discharge Summary/Plan Comment: Transfer to swing bed. Continue current meds. Physical therapy. Dr. Tadeo aware of admission and agrees with plan. - General Info Date of Service: 06/06/18 Admission Dx/Problem (Free Text: Weakness Unsteady gait Functional Status: Reports: Pain Controlled, Tolerating Diet, Ambulating - Review of Systems General: Reports: Weakness. Denies: Fever HEENT: Reports: No Symptoms Pulmonary: Denies: Shortness of Breath, Cough Cardiovascular: Denies: Chest Pain, Edema, Lightheadedness Gastrointestinal: Denies: Abdominal Pain, Nausea, Vomiting Genitourinary: Reports: No Symptoms Musculoskeletal: Reports: Back Pain, Leg Pain Skin: Reports: No Symptoms Neurological: Reports: No Symptoms - Patient Data Vitals - Most Recent: Last Vital Signs Temp 97.9 F 06/06/18 08:00 Pulse 62 06/06/18 08:00 Resp 16 06/06/18 08:00 BP 134/58 L 06/06/18 08:00 Pulse Ox 97 06/06/18 08:00 Weight - Most Recent: 168 lb 1.6 oz Med Orders - Current: Current Medications Discontinued Medications Acetaminophen (Tylenol Extra Strength) 500 mg PO TID [facility] Last Admin: 06/06/18 08:01 Dose: 500 mg Aspirin (Aspirin) 81 mg PO DAILY [facility] Last Admin: 06/06/18 08:01 Dose: 81 mg Carbidopa/Levodopa (Sinemet 25-100 Mg) 1 tab PO BID [facility] Last Admin: 06/06/18 08:01 Dose: 1 tab Ceftriaxone Sodium (Rocephin) 1 gm IVPUSH DAILY@1600 [facility] Last Admin: 06/05/18 16:46 Dose: 1 gm Docusate Sodium (Colace) 100 mg PO DAILY [facility] Last Admin: 06/06/18 08:01 Dose: 100 mg Enoxaparin Sodium (Lovenox) 40 mg SUBCUT DAILY@1600 [facility] Last Admin: 06/05/18 16:46 Dose: 40 mg Fentanyl (Sublimaze) 25 mcg IVPUSH ONETIME ONE Stop: 06/05/18 09:08 Last Admin: 06/05/18 13:05 Dose: Not Given Gabapentin (Neurontin) 100 mg PO TID [facility] Last Admin: 06/06/18 08:02 Dose: 100 mg Sodium Chloride (Normal Saline) 1,000 mls @ 75 mls/hr IV ASDIRECTED [facility] Stop: 05/31/18 05:49 Last Admin: 05/30/18 17:06 Dose: 75 mls/hr Lorazepam (Ativan) 1 mg IVPUSH ONETIME ONE Stop: 06/05/18 09:08 Last Admin: 06/05/18 11:04 Dose: 1 mg Magnesium Hydroxide (Milk Of Magnesia) 30 ml PO Q12H PRN PRN Reason: Constipation Meloxicam (Mobic) 7.5 mg PO DAILY [facility] Last Admin: 06/06/18 08:01 Dose: 7.5 mg Mirtazapine (Remeron) 7.5 mg PO BEDTIME [facility] Last Admin: 06/05/18 19:54 Dose: 7.5 mg Polyethylene Glycol (Miralax) 17 gm PO DAILY [facility] Last Admin: 06/06/18 08:00 Dose: 17 gm Sodium Chloride (Saline Flush) 10 ml FLUSH ASDIRECTED PRN PRN Reason: Keep Vein Open - Exam General: Reports: Alert, Oriented HEENT: Reports: Mucous Membr. Moist/[place] Neck: Reports: Supple Lungs: Reports: Clear to Auscultation, Normal Respiratory Effort Cardiovascular: Reports: Regular Rate, Regular Rhythm GI/Abdominal Exam: Normal Bowel Sounds, Soft, Non-Tender Extremities: Normal Inspection, No Pedal Edema Skin: Reports: Warm, Dry Neurological: Reports: No New Focal Deficit
== END 2018-06-06 09:17 | disposition swing bed (61) | DRG 948 ==
LOC: CC.MS 08:30 → UNDOADMOB 14:34 → CC.MS 14:34 → OBSVTOIN 06-01 08:30
PROVIDERS: ADMIT Nurse Practitioner Family; ATTEND Family Medicine
DX: R53.1 Weakness (principal); R26.81 Unsteadiness on feet; N39.0 Urinary tract infection, site not specified; M50.90 Cervical disc disorder, unspecified, unspecified cervical region; M50.30 Other cervical disc degeneration, unspecified cervical region; M51.36 Other intervertebral disc degeneration, lumbar region; F03.90 Unspecified dementia, unspecified severity, without behavioral disturbance, psychotic disturbance, mood disturbance, and anxiety; F41.8 Other specified anxiety disorders; I10 Essential (primary) hypertension; M81.0 Age-related osteoporosis without current pathological fracture; M48.02 Spinal stenosis, cervical region; M54.9 Dorsalgia, unspecified; M79.672 Pain in left foot; M79.671 Pain in right foot; Z91.81 History of falling; Z80.3 Family history of malignant neoplasm of breast; Z86.19 Personal history of other infectious and parasitic diseases; Z79.899 Other long term (current) drug therapy; Z79.82 Long term (current) use of aspirin; Z98.84 Bariatric surgery status; Z88.8 Allergy status to other drugs, medicaments and biological substances
CPT/HCPCS: 36415 ×3; 72125; 80048 ×2; 80053; 81001; 82550; 85025; 85651; 86140; 87086; 97110; 97161; A9270 ×19; J0696 ×2; J1650 ×2; J7030; 72141; 72148; 96361; 96372; 96374; 96376; 97116-GP; 97530-GP; 99220; 99225; G0378; J2060

== ENCOUNTER 2018-06-06 08:44 | Inpatient (IN) | payer MEDICARE, BC ==
[2018-06-06] MEDS ORDERED: Magnesium Hydroxide 400 MG/5 ML Susp 30 ML Cup PO PRN (09:31)
[2018-06-06] MEDS ORDERED: Sodium Chloride 0.9% 10 ML Syringe FLUSH PRN ×2 (09:31)
[2018-06-06] MEDS: Acetaminophen 500 MG Tab PO SCH ×2 (14:37→19:32)
[2018-06-06] MEDS: Gabapentin 100 MG Cap PO SCH ×2 (14:38→19:31)
[2018-06-06] MEDS: Enoxaparin 40 MG/0.4 ML Syringe SUBCUT SCH (16:38)
[2018-06-06] MEDS: cefTRIAXone 1 GM Vial IVPUSH SCH (16:39)
[2018-06-06] MEDS: Carbidopa/Levodopa 25-100 MG Tab PO SCH (19:31)
[2018-06-06] MEDS ORDERED: Mirtazapine 15 MG Tab PO SCH (20:00)
[2018-06-07] MEDS: Acetaminophen 500 MG Tab PO SCH ×3 (08:36→19:32)
[2018-06-07] MEDS: Docusate Sodium 100 MG Cap PO SCH (08:36)
[2018-06-07] MEDS: Carbidopa/Levodopa 25-100 MG Tab PO SCH ×2 (08:36→19:32)
[2018-06-07] MEDS: Gabapentin 100 MG Cap PO SCH ×3 (08:36→19:32)
[2018-06-07] MEDS: Aspirin 81 MG Tab.Chew PO SCH (08:36)
[2018-06-07] MEDS: Polyethylene Glycol 3350 Powder 17 GM Packet PO SCH (08:37)
[2018-06-07] MEDS: Meloxicam 7.5 MG Tab PO SCH (08:37)
[2018-06-07] MEDS: Enoxaparin 40 MG/0.4 ML Syringe SUBCUT SCH (15:38)
[2018-06-07] MEDS: cefTRIAXone 1 GM Vial IVPUSH SCH (15:38)
[2018-06-07] MEDS: Mirtazapine 15 MG Tab PO SCH (18:56)
[2018-06-08] MEDS: Acetaminophen 500 MG Tab PO SCH ×3 (08:26→19:52)
[2018-06-08] MEDS: Polyethylene Glycol 3350 Powder 17 GM Packet PO SCH (08:26)
[2018-06-08] MEDS: Aspirin 81 MG Tab.Chew PO SCH (08:26)
[2018-06-08] MEDS: Carbidopa/Levodopa 25-100 MG Tab PO SCH ×2 (08:26→19:52)
[2018-06-08] MEDS: Docusate Sodium 100 MG Cap PO SCH (08:26)
[2018-06-08] MEDS: Meloxicam 7.5 MG Tab PO SCH (08:26)
[2018-06-08] MEDS: Gabapentin 100 MG Cap PO SCH ×3 (08:26→19:52)
[2018-06-08] MEDS: Enoxaparin 40 MG/0.4 ML Syringe SUBCUT SCH (15:48)
[2018-06-08] MEDS: cefTRIAXone 1 GM Vial IVPUSH SCH (15:48)
[2018-06-08] MEDS: Mirtazapine 15 MG Tab PO SCH (19:52)
[2018-06-09] MEDS: Aspirin 81 MG Tab.Chew PO SCH (07:28)
[2018-06-09] MEDS: Meloxicam 7.5 MG Tab PO SCH (07:28)
[2018-06-09] MEDS: Docusate Sodium 100 MG Cap PO SCH (07:28)
[2018-06-09] MEDS: Gabapentin 100 MG Cap PO SCH ×3 (07:28→19:48)
[2018-06-09] MEDS: Polyethylene Glycol 3350 Powder 17 GM Packet PO SCH (07:28)
[2018-06-09] MEDS: Acetaminophen 500 MG Tab PO SCH ×3 (07:29→19:48)
[2018-06-09] MEDS: Carbidopa/Levodopa 25-100 MG Tab PO SCH ×2 (07:29→19:48)
[2018-06-09] MEDS: cefTRIAXone 1 GM Vial IVPUSH SCH (15:35)
[2018-06-09] MEDS: Enoxaparin 40 MG/0.4 ML Syringe SUBCUT SCH (15:39)
[2018-06-09] MEDS: Mirtazapine 15 MG Tab PO SCH (18:58)
[2018-06-10] MEDS: Meloxicam 7.5 MG Tab PO SCH (07:26)
[2018-06-10] MEDS: Polyethylene Glycol 3350 Powder 17 GM Packet PO SCH (07:26)
[2018-06-10] MEDS: Gabapentin 100 MG Cap PO SCH ×3 (07:26→19:29)
[2018-06-10] MEDS: Carbidopa/Levodopa 25-100 MG Tab PO SCH ×2 (07:26→19:29)
[2018-06-10] MEDS: Aspirin 81 MG Tab.Chew PO SCH (07:26)
[2018-06-10] MEDS: Docusate Sodium 100 MG Cap PO SCH (07:26)
[2018-06-10] MEDS: Acetaminophen 500 MG Tab PO SCH ×3 (07:27→19:29)
[2018-06-10] MEDS: cefTRIAXone 1 GM Vial IVPUSH SCH (15:32)
[2018-06-10] MEDS: Enoxaparin 40 MG/0.4 ML Syringe SUBCUT SCH (15:36)
[2018-06-10] MEDS: Mirtazapine 15 MG Tab PO SCH (18:36)
[2018-06-11] MEDS: Docusate Sodium 100 MG Cap PO SCH (07:34)
[2018-06-11] MEDS: Meloxicam 7.5 MG Tab PO SCH (07:34)
[2018-06-11] MEDS: Gabapentin 100 MG Cap PO SCH ×3 (07:34→19:42)
[2018-06-11] MEDS: Aspirin 81 MG Tab.Chew PO SCH (07:34)
[2018-06-11] MEDS: Acetaminophen 500 MG Tab PO SCH ×3 (07:34→19:43)
[2018-06-11] MEDS: Polyethylene Glycol 3350 Powder 17 GM Packet PO SCH (07:34)
[2018-06-11] MEDS: Carbidopa/Levodopa 25-100 MG Tab PO SCH ×2 (07:34→19:42)
[2018-06-11] MEDS: Enoxaparin 40 MG/0.4 ML Syringe SUBCUT SCH (16:33)
[2018-06-11] MEDS: cefTRIAXone 1 GM Vial IVPUSH SCH (16:33)
[2018-06-11] MEDS: Mirtazapine 15 MG Tab PO SCH (19:43)
[2018-06-12] MEDS: Carbidopa/Levodopa 25-100 MG Tab PO SCH (08:12)
[2018-06-12] MEDS: Aspirin 81 MG Tab.Chew PO SCH (08:12)
[2018-06-12] MEDS: Docusate Sodium 100 MG Cap PO SCH (08:12)
[2018-06-12] MEDS: Gabapentin 100 MG Cap PO SCH (08:12)
[2018-06-12] MEDS: Acetaminophen 500 MG Tab PO SCH (08:12)
[2018-06-12] MEDS: Meloxicam 7.5 MG Tab PO SCH (08:12)
[2018-06-12] MEDS: Polyethylene Glycol 3350 Powder 17 GM Packet PO SCH (08:13)
--- NOTE | 2018-06-13 21:27 | PCM.DCSUM1 ---
Discharge Summary - Hospital Course Free Text/Narrative:: Patient admitted to swing bed from acute care for ongoing weakness, difficulty with shuffling gait, neck pain. Had MRI of cervical and lumbar spine were done with no acute findings. Admitted for physical therapy. Diagnosis: Stroke: No Modified Ingham Scale: No Symptoms at All Modified Ingham Scale Score: 0 - Discharge Data Discharge Date: 06/12/18 Discharge Disposition: Home, W Home Health Agency 06 Condition: Fair - Patient Summary/Data Complications: none Consults: Consultations 06/06/18 09:31 PT Evaluation and Treatment [CONS] Routine Hospital Course: Patient has had slow, steady improvement of her strength through stay. She is now able to ambulate with walker and get out of bed unassisted. Appetite is good. Tolerating pain with tylenol. Will discharge home with home health. Nursing to continue to monitor pain control, blood pressure, medication tolerance as recently started Sinemet for shuffling gait. Physical therapy for strengthening, balance. Patient is home bound, unable to drive due to balance and mobility concerns. Dr. Tadeo will over see care of Home Health. - Discharge Plan *PRESCRIPTION DRUG MONITORING PROGRAM REVIEWED*: No *COPY OF PRESCRIPTION DRUG MONITORING REPORT IN PATIENT KIRBY: No Prescriptions/Med Rec: Carbidopa/Levodopa [Carbidopa-Levodopa 25-100] 1 tab PO BID #60 tablet Home Medications: Home Meds Aspirin [Children's Aspirin] 81 mg PO DAILY 09/14/17 [History] Docusate Sodium [Stool Softener] 100 mg PO DAILY 09/14/17 [History] Acetaminophen [Tylenol Extra Strength] 500 mg PO TID #90 tablet 09/19/17 [Rx] Polyethylene Glycol 3350 [MiraLAX] 17 gm PO DAILY #30 packet 09/19/17 [Rx] Gabapentin [Neurontin] 100 mg PO TID 05/30/18 [History] Mirtazapine [Remeron] 7.5 mg PO BEDTIME 05/30/18 [History] Carbidopa/Levodopa [Carbidopa-Levodopa 25-100] 1 tab PO BID #60 tablet 06/12/18 [Rx] Referrals: Ozzie Tadeo MD [Primary Care Provider] - (Follow up with Dr. Tadeo in 10 days ) - Discharge Summary/Plan Comment DC Time >30 min.: No Discharge Summary/Plan Comment: [place] [facility] continue Sinemet in addition to other meds. - General Info Date of Service: 06/12/18 Admission Dx/Problem (Free Text: Vulnerable Adult Functional Status: Reports: Pain Controlled, Tolerating Diet, Ambulating - Review of Systems General: Reports: Weakness. Denies: Fever, Fatigue, Malaise HEENT: Reports: No Symptoms Pulmonary: Denies: Shortness of Breath, Cough Cardiovascular: Denies: Chest Pain, Edema, Lightheadedness Gastrointestinal: Reports: No Symptoms Genitourinary: Reports: No Symptoms Musculoskeletal: Reports: Neck Pain, Back Pain Skin: Reports: No Symptoms Neurological: Reports: Weakness - Patient Data Vitals - Most Recent: Last Vital Signs Temp 97.2 F 06/12/18 08:00 Pulse 67 06/12/18 08:00 Resp 18 06/12/18 08:00 BP 135/65 06/12/18 08:00 Pulse Ox 97 06/12/18 08:00 Weight - Most Recent: 170 lb 3.2 oz Med Orders - Current: Current Medications Discontinued Medications Acetaminophen (Tylenol Extra Strength) 500 mg PO TID [facility] Last Admin: 06/12/18 08:12 Dose: 500 mg Aspirin (Aspirin) 81 mg PO DAILY [facility] Last Admin: 06/12/18 08:12 Dose: 81 mg Carbidopa/Levodopa (Sinemet 25-100 Mg) 1 tab PO BID [facility] Last Admin: 06/12/18 08:12 Dose: 1 tab Ceftriaxone Sodium (Rocephin) 1 gm IVPUSH DAILY@1600 [facility] Last Admin: 06/11/18 16:33 Dose: 1 gm Docusate Sodium (Colace) 100 mg PO DAILY [facility] Last Admin: 06/12/18 08:12 Dose: 100 mg Enoxaparin Sodium (Lovenox) 40 mg SUBCUT DAILY@1600 [facility] Last Admin: 06/11/18 16:33 Dose: 40 mg Gabapentin (Neurontin) 100 mg PO TID [facility] Last Admin: 06/12/18 08:12 Dose: 100 mg Magnesium Hydroxide (Milk Of Magnesia) 30 ml PO Q12H PRN PRN Reason: Constipation Meloxicam (Mobic) 7.5 mg PO DAILY [facility] Last Admin: 06/12/18 08:12 Dose: 7.5 mg Mirtazapine (Remeron) 7.5 mg PO BEDTIME [facility] Last Admin: 06/06/18 19:31 Dose: 7.5 mg Mirtazapine (Remeron) 7.5 mg PO 1900 [facility] Last Admin: 06/11/18 19:43 Dose: 7.5 mg Polyethylene Glycol (Miralax) 17 gm PO DAILY [facility] Last Admin: 06/12/18 08:13 Dose: Not Given Sodium Chloride (Saline Flush) 10 ml FLUSH ASDIRECTED PRN PRN Reason: Keep Vein Open Sodium Chloride (Saline Flush) 10 ml FLUSH ASDIRECTED PRN PRN Reason: Keep Vein Open - Exam General: Reports: Alert, Oriented HEENT: Reports: Mucous Membr. Moist/Eclectic Neck: Reports: Supple Lungs: Reports: Clear to Auscultation, Normal Respiratory Effort Cardiovascular: Reports: Regular Rate, Regular Rhythm GI/Abdominal Exam: Normal Bowel Sounds, Soft, Non-Tender Extremities: Normal Inspection, No Pedal Edema Skin: Reports: Warm, Dry Neurological: Reports: No New Focal Deficit
== END 2018-06-12 10:30 | disposition home health service (06) | DRG 948 ==
LOC: CC.MS 08:44
PROVIDERS: ADMIT Family Medicine; ATTEND Family Medicine
DX: R53.1 Weakness (principal); R26.81 Unsteadiness on feet; M81.0 Age-related osteoporosis without current pathological fracture; I10 Essential (primary) hypertension; F03.90 Unspecified dementia, unspecified severity, without behavioral disturbance, psychotic disturbance, mood disturbance, and anxiety; F41.8 Other specified anxiety disorders; M50.90 Cervical disc disorder, unspecified, unspecified cervical region; Z88.5 Allergy status to narcotic agent; Z88.8 Allergy status to other drugs, medicaments and biological substances; Z79.899 Other long term (current) drug therapy; Z79.82 Long term (current) use of aspirin; Z86.19 Personal history of other infectious and parasitic diseases
CPT/HCPCS: 97110-GP; 97112-GP; 97530-GP; A9270-GY; J0696; J1650

== ENCOUNTER 2018-07-13 11:35 | Observation (INO) | payer MEDICARE, BC ==
[2018-07-13 12:32] LABS: CHLORIDE,CL 103 mEq/L (98-106); SODIUM,NA 141 mEq/L (136-145)
[2018-07-13] MEDS ORDERED: Ondansetron 4 MG Tab.DIS PO PRN (12:53)
[2018-07-13] MEDS ORDERED: Acetaminophen 325 MG Tab PO PRN (12:53)
[2018-07-13] MEDS ORDERED: Polyethylene Glycol 3350 Powder 17 GM Packet PO PRN ×2 (12:53→14:56)
[2018-07-13] MEDS ORDERED: Ondansetron 4 MG/2 ML SDV IV PRN (12:53)
[2018-07-13] MEDS: Sodium Chloride 0.9% 1,000 ML IV SCH (13:29)
[2018-07-13] MEDS: Pantoprazole 40 MG Vial IVPUSH SCH (13:33)
[2018-07-13] MEDS: Enoxaparin 30 MG/0.3 ML Syringe SUBCUT SCH (20:00)
[2018-07-13] MEDS: **PTOM** Mirtazapine 15 MG Tab PO SCH (20:00)
[2018-07-13] MEDS: **PTOM** Gabapentin 100 MG Cap PO SCH (20:01)
[2018-07-13] MEDS: LEVODOPA PO SCH (20:01)
[2018-07-13] MEDS: CARBIDOPA PO SCH (20:01)
[2018-07-14] MEDS: Sodium Chloride 0.9% 1,000 ML IV SCH ×2 (04:13→18:13)
[2018-07-14] MEDS: Pantoprazole 40 MG Vial IVPUSH SCH (07:04)
[2018-07-14] MEDS: Aspirin 81 MG Tab.Chew PO SCH (07:35)
[2018-07-14] MEDS: LEVODOPA PO SCH ×2 (07:35→19:51)
[2018-07-14] MEDS: CARBIDOPA PO SCH ×2 (07:35→19:51)
[2018-07-14] MEDS: **PTOM** Gabapentin 100 MG Cap PO SCH ×3 (07:35→19:51)
[2018-07-14] MEDS: Docusate Sodium 100 MG Cap PO SCH (07:36)
--- NOTE | 2018-07-14 14:20 | PCM.PN ---
- General Info Date of Service: 07/14/18 Subjective Update: Patient reports she is feeling fine today but continues to have diarrhea. Had 2 episodes of watery diarrhea last night and one large watery diarrhea episode this morning. Has been tolerating oral liquids. Continues with nausea and decreased appetite. Denies any fever or chills. Functional Status: Reports: Pain Controlled, Ambulating, Urinating. Denies: Tolerating Diet (decreased appetite), New Symptoms - Review of Systems General: Reports: Weakness, Fatigue. Denies: Fever, Chills Pulmonary: Reports: No Symptoms Cardiovascular: Reports: No Symptoms Gastrointestinal: Reports: Abdominal Pain (with diarrhea), Decreased Appetite, Diarrhea, Nausea. Denies: Hematochezia, Melena, Vomiting Genitourinary: Reports: No Symptoms Skin: Reports: No Symptoms Neurological: Reports: Difficulty Walking, Weakness Psychiatric: Reports: No Symptoms - Patient Data Vitals - Most Recent: Last Vital Signs Temp 97.2 F 07/14/18 12:00 Pulse 62 07/14/18 12:00 Resp 18 07/14/18 12:00 BP 119/53 L 07/14/18 12:00 Pulse Ox 98 07/14/18 12:00 Weight - Most Recent: 166 lb 9.6 oz I&O - Last 24 Hours: Intake & Output 07/13/18 07/14/18 07/14/18 22:59 06:59 14:59 Intake Total 1000 Balance 1000 Lab Results Last 24 Hours: Laboratory Results - last 24 hr 07/14/18 07/14/18 Range/Units 05:11 05:11 WBC 3.9 L (5.0-10.0) 10^3/uL RBC 3.86 L (4.00-5.50) 10^6/uL Hgb 11.6 L (12.0-16.0) g/dL Hct 34.5 L (37.0-47.0) % MCV 89.4 (82.0-94.0) fL MCH 30.1 (27.0-32.0) pg MCHC 33.6 (33.0-38.0) g/dL RDW Coeff of Maritza 13.7 (11.0-15.0) % Plt Count 148 L (150-400) 10^3/uL Neut % (Auto) 62.9 (35-85) % Lymph % (Auto) 23.8 (10-55) % [place] % (Auto) 11.5 (0-16) % Eos % (Auto) 1.8 (0-5) % Baso % (Auto) 0 (0-3) % Neut # (Auto) 2.46 (1.80-7.00) 10^3/uL Lymph # (Auto) 0.93 L (1.00-4.80) 10^3/uL [place] # (Auto) 0.45 (0.00-0.80) 10^3/uL Eos # (Auto) 0.07 (0.00-0.45) 10^3/uL Baso # (Auto) 0.00 10^3/uL Sodium 145 (136-145) mEq/L Potassium 4.0 (3.5-5.0) mEq/L Chloride 109 H (98-106) mEq/L Carbon Dioxide 27 (21-32) mmol/L BUN 21 H (7-18) mg/dL Creatinine 0.9 (0.6-1.0) mg/dL Est Cr Clr Drug Dosing 46.94 mL/min Estimated GFR (MDRD) 60 (>=60) mL/min Glucose 78 (75-99) mg/dL Calcium 8.2 L (8.4-10.1) mg/dL Magnesium 1.9 (1.8-2.4) mg/dL C-Reactive Protein 4.9 H (0.2-0.8) mg/dL Med Orders - Current: Current Medications Acetaminophen (Tylenol) 650 mg PO Q4H PRN PRN Reason: Pain (Mild 1-3)/fever Aspirin (Aspirin) 81 mg PO DAILY [facility] Last Admin: 07/14/18 07:35 Dose: 81 mg Carbidopa/Levodopa (Sinemet 25-100 Mg) 1 tab PO BID [facility] Last Admin: 07/14/18 07:35 Dose: 1 tab Docusate Sodium (Colace) 100 mg PO DAILY [facility] Last Admin: 07/14/18 07:36 Dose: Not Given Enoxaparin Sodium (Lovenox) 30 mg SUBCUT Q24H [facility] Last Admin: 07/13/18 20:00 Dose: 30 mg Gabapentin (Neurontin) 100 mg PO TID [facility] Last Admin: 07/14/18 07:35 Dose: 100 mg Sodium Chloride (Normal Saline) 1,000 mls @ 70 mls/hr IV ASDIRECTED [facility] Last Admin: 07/14/18 04:13 Dose: 70 mls/hr Mirtazapine (Remeron) 7.5 mg PO BEDTIME [facility] Last Admin: 07/13/18 20:00 Dose: 7.5 mg Ondansetron HCl (Zofran) 4 mg IV Q4H PRN PRN Reason: Nausea/Vomiting Last Admin: 07/13/18 13:36 Dose: 4 mg Ondansetron HCl (Zofran Odt) 4 mg PO Q4H PRN PRN Reason: nausea, able to take PO Pantoprazole Sodium (Protonix Iv) 40 mg IVPUSH 0700 [facility] Last Admin: 07/14/18 07:04 Dose: 40 mg Polyethylene Glycol (Miralax) 17 gm PO DAILY PRN PRN Reason: Constipation Polyethylene Glycol (Miralax) 17 gm PO DAILY PRN PRN Reason: Constipation Discontinued Medications Magnesium Sulfate/Dextrose (Magnesium 1 Gm In D5w 100 Ml) 1 gm IV ONETIME ONE Stop: 07/13/18 12:54 Last Admin: 07/13/18 13:39 Dose: 1 gm - Exam Quality Assessment: DVT Prophylaxis General: Alert, Oriented, No Acute Distress Neck: Supple Lungs: Clear to Auscultation, Normal Respiratory Effort Cardiovascular: Regular Rate, Regular Rhythm GI/Abdominal Exam: Normal Bowel Sounds, Soft, Non-Tender, No Distention Back Exam: Normal Inspection, Full Range of Motion Extremities: Normal Inspection, Normal Range of Motion, Non-Tender, No Pedal Edema, Normal Capillary Refill Neurological: No New Focal Deficit Psy/Mental Status: Alert, Normal Affect, Normal Mood - Problem List & Annotations (1) Gastroenteritis SNOMED Code(s): 60864944 Code(s): K52.9 - NONINFECTIVE GASTROENTERITIS AND COLITIS, UNSPECIFIED Status: Acute Current Visit: Yes (2) Dehydration SNOMED Code(s): 61762993 Code(s): E86.0 - DEHYDRATION Status: Acute Current Visit: Yes (3) Weakness SNOMED Code(s): 11456797 Code(s): R53.1 - WEAKNESS Status: Acute Priority: High Current Visit: No - Problem List Review Problem List Initiated/Reviewed/Updated: Yes - My Orders Last 24 Hours: My Active Orders 07/13/18 20:00 Enoxaparin [Lovenox] 30 mg SUBCUT Q24H 07/14/18 14:19 C DIFFICILE BY DNA [] Routine STOOL CULTURE [[facility]] Routine - Plan Plan:: Patient does continue to have diarrhea. Does have nausea, but has not vomited recently. She reports she remains weak. Has not had any fevers. Is tolerating liquids, but has not eaten much. VSS. Labs show improvement in her BUN from 31 to 21 today. WBC down to 3.9 from 7.8 yesterday. Discussed with patient and son that this is likely viral gastroenteritis. Mg stable at 1.9. CRP trending down, 4.9 today. Will get stool studies given ongoing watery diarrhea. Continue IVF. Recheck labs in am. Likely discharge 1-2 days if diarrhea and weakness improves.
[2018-07-14] MEDS: Enoxaparin 30 MG/0.3 ML Syringe SUBCUT SCH (19:50)
[2018-07-14] MEDS: **PTOM** Mirtazapine 15 MG Tab PO SCH (19:50)
[2018-07-15] MEDS: Pantoprazole 40 MG Vial IVPUSH SCH (07:26)
[2018-07-15] MEDS: Aspirin 81 MG Tab.Chew PO SCH (07:45)
[2018-07-15] MEDS: Docusate Sodium 100 MG Cap PO SCH (07:45)
[2018-07-15] MEDS: LEVODOPA PO SCH (07:46)
[2018-07-15] MEDS: **PTOM** Gabapentin 100 MG Cap PO SCH ×2 (07:46→13:04)
[2018-07-15] MEDS: CARBIDOPA PO SCH (07:46)
[2018-07-15] MEDS: Sodium Chloride 0.9% 1,000 ML IV SCH (08:33)
--- NOTE | 2018-07-15 14:48 | PCM.DCSUM1 ---
Discharge Summary - Discharge Data Discharge Date: 07/15/18 Discharge Disposition: Home, Self-Care 01 Condition: Good - Discharge Diagnosis/Problem(s) (1) Gastroenteritis SNOMED Code(s): 51091293 ICD Code: K52.9 - NONINFECTIVE GASTROENTERITIS AND COLITIS, UNSPECIFIED Status: Acute Current Visit: Yes (2) Dehydration SNOMED Code(s): 47200877 ICD Code: E86.0 - DEHYDRATION Status: Acute Current Visit: Yes (3) Weakness SNOMED Code(s): 26628165 ICD Code: R53.1 - WEAKNESS Status: Acute Priority: High Current Visit: No - Patient Summary/Data Hospital Course: Philly is a pleasant 83 year old female who was admitted to the hospital on 07/13 for vomiting, diarrhea, dehydration, and weakness. She was started on IVF. Labs remained stable throughout hospitalization. BUN did improve from 31 to 21 with IV hydration. Magnesium was low on admit at 1.7. Magnesium was replaced and recheck was 1.9. Stool studies were ordered on hospital day 2, however patient had no more diarrhea, so they were not collected. She has had complete resolution of her diarrhea, nausea, and vomiting. At the time of discharge she is tolerating a regular diet and ambulating with assistance of her walker. She will be discharged back to the [facility] assisted living facility in satisfactory condition. She is advised to follow up as needed with her PCP. - Patient Instructions Diet: Regular Diet as Tolerated Activity: As Tolerated Notify Provider of: Fever, Increased Pain, Nausea and/or Vomiting - Discharge Plan *PRESCRIPTION DRUG MONITORING PROGRAM REVIEWED*: Not Applicable *COPY OF PRESCRIPTION DRUG MONITORING REPORT IN PATIENT KIRBY: Not Applicable Home Medications: Home Meds Aspirin [Children's Aspirin] 81 mg PO DAILY 09/14/17 [History] Docusate Sodium [Stool Softener] 100 mg PO DAILY 09/14/17 [History] Acetaminophen [Tylenol Extra Strength] 500 mg PO TID #90 tablet 09/19/17 [Rx] Gabapentin [Neurontin] 100 mg PO TID 05/30/18 [History] Mirtazapine [Remeron] 7.5 mg PO BEDTIME 05/30/18 [History] Carbidopa/Levodopa [Carbidopa-Levodopa 25-100] 1 tab PO BID #60 tablet 06/12/18 [Rx] Polyethylene Glycol 3350 [MiraLAX] 17 gm PO DAILY PRN 07/13/18 [History] - Discharge Summary/Plan Comment DC Time >30 min.: No - General Info Date of Service: 07/15/18 Admission Dx/Problem (Free Text: Viral gastroenteritis Dehydration Generalized Weakness Subjective Update: Philly reports she is feeling well this morning. Has not had any more diarrhea or vomiting. Last loose stool was yesterday morning. Stool studies were ordered , however patient has not had any more stools. She reports she was able to eat well at lunch. Is tolerating oral liquids. Has been up ambulating without difficulty. She has no complaints this afternoon. - Review of Systems General: Reports: No Symptoms. Denies: Fever, Weakness, Fatigue, Chills Pulmonary: Reports: No Symptoms Cardiovascular: Reports: No Symptoms Gastrointestinal: Reports: No Symptoms. Denies: Abdominal Pain, Constipation, Decreased Appetite, Diarrhea, Hematochezia, Melena, Nausea, Vomiting Genitourinary: Reports: Frequency (IVF infusing). Denies: Dysuria, Burning Musculoskeletal: Reports: No Symptoms Skin: Reports: No Symptoms Neurological: Reports: No Symptoms Psychiatric: Reports: No Symptoms - Patient Data Vitals - Most Recent: Last Vital Signs Temp 97.8 F 07/15/18 12:00 Pulse 58 L 07/15/18 12:00 Resp 18 07/15/18 12:00 BP 117/53 L 07/15/18 12:00 Pulse Ox 97 07/15/18 12:00 Weight - Most Recent: 166 lb 9.6 oz I&O - Last 24 hours: Intake & Output 07/14/18 07/15/18 07/15/18 22:59 06:59 14:59 Intake Total 980 1000 Balance 980 1000 Med Orders - Current: Current Medications Acetaminophen (Tylenol) 650 mg PO Q4H PRN PRN Reason: Pain (Mild 1-3)/fever Aspirin (Aspirin) 81 mg PO DAILY [facility] Last Admin: 07/15/18 07:45 Dose: 81 mg Carbidopa/Levodopa (Sinemet 25-100 Mg) 1 tab PO BID [facility] Last Admin: 07/15/18 07:46 Dose: 1 tab Docusate Sodium (Colace) 100 mg PO DAILY [facility] Last Admin: 07/15/18 07:45 Dose: 100 mg Enoxaparin Sodium (Lovenox) 30 mg SUBCUT Q24H [facility] Last Admin: 07/14/18 19:50 Dose: 30 mg Gabapentin (Neurontin) 100 mg PO TID [facility] Last Admin: 07/15/18 13:04 Dose: 100 mg Sodium Chloride (Normal Saline) 1,000 mls @ 70 mls/hr IV ASDIRECTED [facility] Last Admin: 07/15/18 08:33 Dose: 70 mls/hr Mirtazapine (Remeron) 7.5 mg PO BEDTIME [facility] Last Admin: 07/14/18 19:50 Dose: 7.5 mg Ondansetron HCl (Zofran) 4 mg IV Q4H PRN PRN Reason: Nausea/Vomiting Last Admin: 07/13/18 13:36 Dose: 4 mg Ondansetron HCl (Zofran Odt) 4 mg PO Q4H PRN PRN Reason: nausea, able to take PO Last Admin: 07/15/18 08:33 Dose: 4 mg Pantoprazole Sodium (Protonix Iv) 40 mg IVPUSH 0700 [facility] Last Admin: 07/15/18 07:26 Dose: 40 mg Polyethylene Glycol (Miralax) 17 gm PO DAILY PRN PRN Reason: Constipation Polyethylene Glycol (Miralax) 17 gm PO DAILY PRN PRN Reason: Constipation Discontinued Medications Magnesium Sulfate/Dextrose (Magnesium 1 Gm In D5w 100 Ml) 1 gm IV ONETIME ONE Stop: 07/13/18 12:54 Last Admin: 07/13/18 13:39 Dose: 1 gm - Exam General: Reports: Alert, Oriented, No Acute Distress Neck: Reports: Supple Lungs: Reports: Clear to Auscultation, Normal Respiratory Effort Cardiovascular: Reports: Regular Rate, Regular Rhythm GI/Abdominal Exam: Normal Bowel Sounds, Soft, Non-Tender, No Organomegaly, No Distention, No Abnormal Bruit, No Mass, Pelvis Stable Back Exam: Reports: Normal Inspection, Full Range of Motion Extremities: Normal Inspection, Normal Range of Motion, Non-Tender, No Pedal Edema, Normal Capillary Refill Skin: Reports: Warm, Dry, Intact Neurological: Reports: No New Focal Deficit Psy/Mental Status: Reports: Alert, Normal Affect, Normal Mood
== END 2018-07-15 15:40 | disposition home or self-care (01) ==
LOC: CC.FCMC 11:35 → CC.MS 11:35 → UNDOADMOB 12:50 → CC.MS 12:53
PROVIDERS: ADMIT Physician Assistant Medical; ATTEND Family Medicine
DX: K52.9 Noninfective gastroenteritis and colitis, unspecified (principal); E86.0 Dehydration; R53.1 Weakness; I11.0 Hypertensive heart disease with heart failure; I50.9 Heart failure, unspecified; G20 Parkinson's disease; F41.8 Other specified anxiety disorders; Z79.82 Long term (current) use of aspirin; Z79.899 Other long term (current) drug therapy; Z88.5 Allergy status to narcotic agent
CPT/HCPCS: 36415; 74019; 80048; 80053; 81001; 82150; 83735; 85025; 86140; 96361; 96365; 96372; 96375; 96376; 99217; 99219; 99225; A9270; C9113; G0378; J1650; J2405; J3475; J7030

== ENCOUNTER 2021-06-05 19:02 | Emergency (ER) | payer MEDICARE, BC ==
--- NOTE | 2021-06-05 19:48 | EDM.PDOC ---
ED HPI GENERAL MEDICAL PROBLEM - General Chief Complaint: General Stated Complaint: not feeling well Time Seen by Provider: 06/05/21 19:05 Source of Information: Reports: Patient, Family History Limitations: Reports: No Limitations - History of Present Illness INITIAL COMMENTS - FREE TEXT/NARRATIVE: Philly is an 86 year old female who presents to ER with her daughter with increa sed weakness, nausea/abdominal discomfort. Did have an episode of diarrhea today. Daughter reports that she had cataract surgery this week and with 2 trips to [place] and then a follow up visit with Dr. Hernandez, she thought initially her mother was just played out. She was called by the [facility] yesterday as she was more weak and not eating well. She visited with her after she had a nap and she seemed better. This am, was complaining of abdominal discomfort but after she rested, asked for dinner from the [employer] [address] in. Ate 1/2 of her dinner and felt better. Was contacted this afternoon again by the [facility] as they said she seemed more confused and wasn't really able to even walk. Daughter is unsure if "anything going on as has been under more stress as of late with them taking away her van and keys and she has been very angry about it". No fevers. Had a covid test at the [facility] today which was negative. Does admit to a mild headache. Abdominal discomfort. No cough. No shortness of breath. No other changes. [facility] staff report she was like this in the past with a bladder infection. Has not been eating or drinking well for the last 2 days. Onset: Gradual Duration: Day(s):, Getting Worse Location: Reports: Abdomen, Generalized Quality: Reports: Ache Severity: Mild Improves with: Reports: None Worsens with: Reports: None Associated Symptoms: Reports: Confusion, Headaches, Loss of Appetite, Malaise, Nausea/Vomiting, Weakness. Denies: Chest Pain, Cough, Fever/Chills, Shortness of Breath - Related Data Allergies Allergy/AdvReac Type Severity Reaction Status Date / Time metoclopramide [From Reglan] Allergy Nausea Verified 06/05/21 19:07 propoxyphene [From Darvon] Allergy Nausea Verified 06/05/21 19:07 Home Meds: Home Meds Aspirin [Children's Aspirin] 81 mg PO DAILY 09/14/17 [History] Docusate Sodium [Stool Softener] 100 mg PO DAILY 09/14/17 [History] Acetaminophen [Tylenol Extra Strength] 500 mg PO TID #90 tablet 09/19/17 [Rx] Gabapentin [Neurontin] 100 mg PO TID 05/30/18 [History] polyethylene glycoL 3350 [MiraLAX] 17 gm PO DAILY PRN 07/13/18 [History] Carbidopa/Levodopa [Carbidopa-Levodopa 25-100] 1 tab PO BID 06/05/21 [History] Carbidopa/Levodopa [Carbidopa-Levodopa 25-100] 2 tab PO BID 06/05/21 [History] Furosemide 40 mg PO DAILY 06/05/21 [History] Past Medical History Cardiovascular History: Reports: Hypertension Gastrointestinal History: Reports: Chronic Constipation [employer] History: Reports: Musculoskeletal History: Reports: Neck Pain, Chronic, Osteoporosis Neurological History: Reports: Parkinson's Psychiatric History: Reports: Anxiety, Dementia, Depression - Past Surgical History HEENT Surgical History: Reports: Cataract Surgery, Other (See Below) Other HEENT Surgeries/Procedures: SKIN GRAFT ON NOSE GI Surgical History: Reports: Appendectomy, Cholecystectomy, Colonoscopy, EGD Female Surgical History: Reports: Hysterectomy Musculoskeletal Surgical History: Reports: Knee Replacement, Shoulder Surgery Other Musculoskeletal Surgeries/Procedures:: history of shoulder impingement Social & Family History - Family History Family Medical History: No Pertinent Family History - Tobacco Use Tobacco Use Status *Q: Never Tobacco User - Caffeine Use Caffeine Use: Reports: Coffee - Recreational Drug Use Recreational Drug Use: No ED ROS GENERAL - Review of Systems Review Of Systems: See Below Constitutional: Reports: Malaise, Weakness, Fatigue, Decreased Appetite. Denies: Fever, Chills HEENT: Denies: Ear Pain, Sinus Problem, Throat Pain, Vertigo, Vision Change Respiratory: Denies: Shortness of Breath, Cough Cardiovascular: Reports: Edema. Denies: Chest Pain, Lightheadedness Endocrine: Reports: Fatigue GI/Abdominal: Reports: Abdominal Pain, Diarrhea, Nausea. Denies: Vomiting : Reports: No Symptoms Musculoskeletal: Reports: Neck Pain (chronic in nature) Skin: Reports: No Symptoms Neurological: Reports: Confusion, Headache, Weakness ED EXAM, GENERAL - Physical Exam Exam: See Below Exam Limited By: No Limitations General Appearance: Alert, WD/WN, No Apparent Distress Eye Exam: Bilateral Eye: EOMI, PERRL Ears: Normal External Exam, Normal TMs Nose: Normal Inspection, Normal Mucosa, No Blood Throat/Mouth: Normal Inspection, Other (mucous membranes are dry) Head: Normocephalic Neck: Limited Range of Motion (chronic arthritic issues) Respiratory/Chest: No Respiratory Distress, Lungs Clear, Normal Breath Sounds Cardiovascular: Regular Rate, Rhythm GI/Abdominal: Normal Bowel Sounds, Soft, Tender (upper quadrants bilaterally) Extremities: Normal Inspection, Pedal Edema (1+) Neurological: Alert, Oriented (person and place; did know this provider by name), Other (some speech difficult to understand, mouth is also very dry as seems appropriate) Skin Exam: Warm, Dry Course - Vital Signs Last Recorded V/S: Last Vital Signs Temp 97 F 06/05/21 19:09 Pulse 63 06/05/21 19:09 Resp 16 06/05/21 19:09 BP 126/67 06/05/21 19:09 Pulse Ox 94 L 06/05/21 19:09 - Orders/Labs/Meds Orders: Active Orders 24 hr Category Date Time Status Abdomen 1V Flat [CR] Stat Exams 06/05/21 19:08 Taken Chest 1V Frontal [CR] Stat Exams 06/05/21 19:08 Taken Head wo Cont [CT] Stat Exams 06/05/21 19:20 Taken Labs: Laboratory Tests 06/05/21 06/05/21 06/05/21 Range/Units 19:08 19:20 19:20 WBC 6.5 (4.0-11.0) 10^3/uL RBC 4.23 (4.00-5.50) x10^6/uL Hgb 12.7 (12.0-16.0) g/dL Hct 37.7 (37.0-47.0) % MCV 89.1 (83.0-97.0) fL MCH 30.0 (27.0-32.0) pg MCHC 33.7 (32.0-36.0) g/dL RDW Coeff of Maritza 13.6 (11.0-15.0) % Plt Count 238 (150-400) 10^3/uL Immature Gran % (Auto) 0.2 (0.0-4.9) % Neut % (Auto) 74.1 H (41-71) % Lymph % (Auto) 16.9 L (24-44) % [place] % (Auto) 6.8 (0-10) % Eos % (Auto) 1.2 (0-6) % Baso % (Auto) 0.8 (0-1) % Neut # (Auto) 4.79 (1.80-8.00) x10^3/uL Lymph # (Auto) 1.09 (0.60-5.00) 10^3/uL [place] # (Auto) 0.44 (0.00-1.50) 10^3/uL Eos # (Auto) 0.08 (0.00-1.50) 10^3/uL Baso # (Auto) 0.05 (0.00-0.50) 10^3/uL Immature Gran # (Auto) 0.01 (0.00-0.49) 10^3/uL Sodium 139 (136-145) mEq/L Potassium 4.0 (3.5-5.0) mEq/L Chloride 103 (98-106) mEq/L Carbon Dioxide 28 (21-32) mmol/L BUN 18 (7-18) mg/dL Creatinine 1.1 H (0.6-1.0) mg/dL Est Cr Clr Drug Dosing 33.73 mL/min Estimated GFR (MDRD) 47 L (>=60) mL/min Glucose 100 H (75-99) mg/dL Calcium 9.2 (8.4-10.1) mg/dL Total Bilirubin 0.6 (0.0-1.0) mg/dL AST 18 (15-37) U/L ALT 7 L (12-78) U/L Alkaline Phosphatase 76 (46-116) U/L Lactate Dehydrogenase 201 H (100-190) U/L Creatine Kinase 55 (21-215) U/L Troponin I High Sens 7.7 (<=51) pg/mL C-Reactive Protein < 0.2 L (0.2-0.8) mg/dL Total Protein 6.6 (6.4-8.2) g/dL Albumin 3.5 (3.4-5.0) g/dL Urine Color Yellow (YELLOW) Urine Appearance Clear (CLEAR) Urine pH 5.0 (4.5-8.0) Ur Specific Chunky 1.025 H (1.003-1.020) Urine Protein Negative (NEGATIVE) mg/dL Urine Glucose (UA) Negative (NEGATIVE) mg/dL Urine Ketones 15 H (NEGATIVE) mg/dL Urine Occult Blood Negative (NEGATIVE) Urine Nitrite Negative (NEGATIVE) Urine Bilirubin Negative (NEGATIVE) Urine Urobilinogen 0.2 (0.2-1.0) EU/dL Ur Leukocyte Esterase Negative (NEGATIVE) - Re-Assessments/Exams Free Text/Narrative Re-Assessment/Exam: 06/05/21 21:11 Labs, urine, chest xray, abdominal xray and head CT are all negative. Family relates that over the last few days, has not been taken her tylenol meds as she should. Takes all of her sinemet earlier than she should. Son states that doctor Page has been increasing her meds slowly and may need further change with these meds. Son relates that has seen this occur with her before when her meds have not been taken correctly and she gets overtired. Patient was able to get up from the bed, get her pants on and ambulate with standby assist. Family does feel comfortable with her returning back to the [facility] and will help her get settled. Advised to return if changes. Departure - Departure Time of Disposition: 21:13 Disposition: Home, Self-Care 01 Condition: Fair Clinical Impression: Weakness - Discharge Information *PRESCRIPTION DRUG MONITORING PROGRAM REVIEWED*: No *COPY OF PRESCRIPTION DRUG MONITORING REPORT IN PATIENT KIRBY: No Instructions: Weakness, [id number] Referrals: PCP,None [Primary Care Provider] - Forms: ED Department Discharge Additional Instructions: 1. Push fluids 2. Tylenol as recommended 3-4 times per day 3. Sinemet at scheduled times 4. Rest 5. Return if persisting concerns. Sepsis Event Note (ED) - Evaluation Sepsis Screening Result: No Definite Risk - Focused Exam Vital Signs: Vital Signs Temp Pulse Resp BP Pulse Ox 06/05/21 19:09 97 F 63 16 126/67 94 L - My Orders Last 24 Hours: My Active Orders 06/05/21 19:08 Abdomen 1V Flat [CR] Stat Chest 1V Frontal [CR] Stat 06/05/21 19:20 Head wo Cont [CT] Stat - Assessment/Plan Last 24 Hours: My Active Orders 06/05/21 19:08 Abdomen 1V Flat [CR] Stat Chest 1V Frontal [CR] Stat 06/05/21 19:20 Head wo Cont [CT] Stat
[2021-06-05 19:50] LABS: CHLORIDE,CL 103 mEq/L (98-106); SODIUM,NA 139 mEq/L (136-145)
== END 2021-06-05 21:20 | disposition home or self-care (01) ==
LOC: CC.ED 19:02
DX: R53.1 Weakness (principal); I10 Essential (primary) hypertension; Z88.8 Allergy status to other drugs, medicaments and biological substances; Z79.82 Long term (current) use of aspirin; Z79.899 Other long term (current) drug therapy; R51.9 Headache, unspecified
CPT/HCPCS: 36415; 51701; 70450; 71045; 74018; 80053; 81003; 82550; 83615; 84484; 85025; 86140; 93005; 93010; 99284; 99285-25

== ENCOUNTER 2021-10-13 13:25 | Emergency (ER) | payer MEDICARE, BC ==
[2021-10-13 14:06] LABS: CHLORIDE,CL 104 mEq/L (98-106); SODIUM,NA 144 mEq/L (136-145)
== END 2021-10-13 16:20 | disposition home or self-care (01) ==
LOC: CC.ED 13:25
DX: R53.1 Weakness (principal); N39.0 Urinary tract infection, site not specified; M25.561 Pain in right knee; M25.562 Pain in left knee; E86.0 Dehydration; I10 Essential (primary) hypertension; Z88.8 Allergy status to other drugs, medicaments and biological substances; Z79.82 Long term (current) use of aspirin
CPT/HCPCS: 36415; 71046; 73560-LT; 73560-RT; 80048; 81001; 81003; 84484; 85025; 86140; 87086; 93005; 99284; 99285-25

== ENCOUNTER 2021-11-13 17:57 | Emergency (ER) | payer MEDICARE, BC | END 2021-11-13 19:00 | disposition home or self-care (01) | LOC: CC.ED 17:57 | DX: F41.9 Anxiety disorder, unspecified (principal); F03.90 Unspecified dementia, unspecified severity, without behavioral disturbance, psychotic disturbance, mood disturbance, and anxiety; I10 Essential (primary) hypertension; Z88.8 Allergy status to other drugs, medicaments and biological substances | CPT/HCPCS: 36415; 80053; 81001; 83735; 84484; 85025; 93005; 99284; 99284-25 ==

== ENCOUNTER 2022-02-18 08:09 | Inpatient (IN) | payer MEDICARE, BC ==
[2022-02-18] MEDS ORDERED: Oxymetazoline 0.05% Nasal Spray 30 ML Bottle NAS ONE (09:16)
[2022-02-18] MEDS ORDERED: Diphtheria,Pertussis(Acell),Tetanus Vaccine 0.5 ML Syringe IM ONE (10:12)
[2022-02-18] MEDS ORDERED: Acetaminophen 325 MG Tab PO PRN (11:43)
[2022-02-18] MEDS ORDERED: Sodium Chloride 0.9% 10 ML Syringe FLUSH PRN (11:46)
[2022-02-18] MEDS ORDERED: Morphine 2 MG/ML SYRINGE IVPUSH PRN (11:50)
[2022-02-18] MEDS ORDERED: Ondansetron 4 MG/2 ML SDV IVPUSH PRN ×2 (11:53→15:08)
[2022-02-18] MEDS ORDERED: Carbidopa/Levodopa 25-100 MG Tab **PTOM PO SCH (12:00)
[2022-02-18] MEDS ORDERED: Gabapentin 100 MG Cap **PTOM PO SCH (12:15)
[2022-02-18] MEDS ORDERED: HYDROmorphone 0.5 MG/0.5 ML Syringe IVPUSH ONE ×2 (12:40→14:50)
[2022-02-18] MEDS ORDERED: Acetaminophen 500 MG Tab PO SCH (14:00)
[2022-02-18] MEDS: Ampicillin/Sulbactam Na 1.5 GM Vial IVPUSH SCH ×2 (14:21→19:45)
[2022-02-18] MEDS ORDERED: Ondansetron 4 MG/2 ML SDV IVPUSH STA (15:10)
[2022-02-18] MEDS: Carbidopa/Levodopa 25-100 MG Tab PO SCH (18:43)
[2022-02-18] MEDS: Acetaminophen/HYDROcodone 325-5 MG Tab PO PRN (18:44)
[2022-02-18] MEDS: Gabapentin 100 MG Cap PO SCH (18:44)
[2022-02-18] MEDS: Mirtazapine 15 MG Tab PO SCH (19:45)
[2022-02-18] MEDS ORDERED: Mirtazapine 15 MG Tab **PTOM PO SCH (20:00)
[2022-02-18] MEDS ORDERED: Carbidopa/Levodopa 25-100 MG Tab PO SCH (20:00)
[2022-02-19] MEDS: Ondansetron 4 MG Tab.DIS PO PRN ×4 (01:10→17:14)
[2022-02-19] MEDS: Acetaminophen/HYDROcodone 325-5 MG Tab PO PRN ×5 (01:10→21:15)
[2022-02-19] MEDS: Ampicillin/Sulbactam Na 1.5 GM Vial IVPUSH SCH ×4 (01:10→19:12)
[2022-02-19] MEDS: LORazepam 0.5 MG Tab PO PRN (03:38)
[2022-02-19] MEDS: Furosemide 40 MG Tab PO SCH (07:44)
[2022-02-19] MEDS: Beta-Carotene (Vitamin A) w/Vitamin C & E plus Minerals Tab PO SCH (07:44)
[2022-02-19] MEDS: Gabapentin 100 MG Cap PO SCH ×3 (07:45→18:04)
[2022-02-19] MEDS: Aspirin 81 MG Tab.EC PO SCH (07:45)
[2022-02-19] MEDS: Carbidopa/Levodopa 25-100 MG Tab PO SCH ×3 (07:45→18:04)
[2022-02-19] MEDS ORDERED: Docusate Sodium 100 MG Cap PO SCH (08:00)
[2022-02-19] MEDS: Mirtazapine 15 MG Tab PO SCH (19:12)
[2022-02-19] MEDS: Docusate Sodium 100 MG Cap PO SCH (19:12)
[2022-02-20] MEDS: Ampicillin/Sulbactam Na 1.5 GM Vial IVPUSH SCH ×4 (01:16→19:06)
[2022-02-20] MEDS: Acetaminophen/HYDROcodone 325-5 MG Tab PO PRN ×3 (03:27→17:34)
[2022-02-20] MEDS: Aspirin 81 MG Tab.EC PO SCH (07:43)
[2022-02-20] MEDS: Beta-Carotene (Vitamin A) w/Vitamin C & E plus Minerals Tab PO SCH (07:43)
[2022-02-20] MEDS: Gabapentin 100 MG Cap PO SCH ×3 (07:44→17:35)
[2022-02-20] MEDS: Carbidopa/Levodopa 25-100 MG Tab PO SCH ×3 (07:44→17:34)
[2022-02-20] MEDS: Docusate Sodium 100 MG Cap PO SCH ×2 (07:44→19:05)
[2022-02-20] MEDS: Furosemide 40 MG Tab PO SCH (07:49)
[2022-02-20] MEDS: Mirtazapine 15 MG Tab PO SCH (19:05)
[2022-02-20] MEDS: LORazepam 0.5 MG Tab PO PRN (22:26)
[2022-02-21] MEDS: Acetaminophen/HYDROcodone 325-5 MG Tab PO PRN ×2 (00:26→08:03)
[2022-02-21] MEDS: Ampicillin/Sulbactam Na 1.5 GM Vial IVPUSH SCH ×3 (01:58→14:13)
[2022-02-21] MEDS: Carbidopa/Levodopa 25-100 MG Tab PO SCH ×2 (07:36→12:02)
[2022-02-21] MEDS: Furosemide 40 MG Tab PO SCH (07:36)
[2022-02-21] MEDS: Beta-Carotene (Vitamin A) w/Vitamin C & E plus Minerals Tab PO SCH (07:36)
[2022-02-21] MEDS: Aspirin 81 MG Tab.EC PO SCH (07:36)
[2022-02-21] MEDS: Docusate Sodium 100 MG Cap PO SCH (07:36)
[2022-02-21] MEDS: Gabapentin 100 MG Cap PO SCH ×2 (07:36→12:02)
[2022-02-21] MEDS: Ondansetron 4 MG Tab.DIS PO PRN (14:13)
== END 2022-02-21 14:43 | disposition swing bed (61) | DRG 86 ==
LOC: CC.ED 08:09 → CC.MS 10:37 → UNDOADMOB 10:37 → CC.MS 10:41 → OBSVTOIN 13:37
PROVIDERS: ADMIT Nurse Practitioner Family; ATTEND Nurse Practitioner Family
DX: S69.92XA Unspecified injury of left wrist, hand and finger(s), initial encounter (principal); S02.85XA Fracture of orbit, unspecified, initial encounter for closed fracture; S02.40DA Maxillary fracture, left side, initial encounter for closed fracture; S61.401A Unspecified open wound of right hand, initial encounter; W01.0XXA Fall on same level from slipping, tripping and stumbling without subsequent striking against object, initial encounter; Y92.099 Unspecified place in other non-institutional residence as the place of occurrence of the external cause; S02.2XXA Fracture of nasal bones, initial encounter for closed fracture; G20 Parkinson's disease; F41.9 Anxiety disorder, unspecified; M25.511 Pain in right shoulder; F41.8 Other specified anxiety disorders; F03.90 Unspecified dementia, unspecified severity, without behavioral disturbance, psychotic disturbance, mood disturbance, and anxiety; Z79.82 Long term (current) use of aspirin; Z79.899 Other long term (current) drug therapy; Z88.8 Allergy status to other drugs, medicaments and biological substances; Z88.5 Allergy status to narcotic agent; K59.09 Other constipation; I10 Essential (primary) hypertension; M54.2 Cervicalgia; G89.29 Other chronic pain; M81.0 Age-related osteoporosis without current pathological fracture; F32.A Depression, unspecified; Z98.49 Cataract extraction status, unspecified eye; Z90.49 Acquired absence of other specified parts of digestive tract; Z90.710 Acquired absence of both cervix and uterus; Z96.659 Presence of unspecified artificial knee joint; Z98.890 Other specified postprocedural states; R04.0 Epistaxis; S61.411A Laceration without foreign body of right hand, initial encounter; S00.83XA Contusion of other part of head, initial encounter
CPT/HCPCS: 36415; 70450; 70486; 73110; 80053; 85025; 90471; 90715; 96374; 96375; 99284; J1170; J2270; J2405; 73030-RT; 96376; A9270-GY; J0295

== ENCOUNTER 2022-02-21 11:10 | Inpatient (IN) | payer MEDICARE, BC ==
[2022-02-21] MEDS ORDERED: Ondansetron 4 MG Tab.DIS PO PRN (16:35)
[2022-02-21] MEDS ORDERED: Ondansetron 4 MG/2 ML SDV IVPUSH PRN (16:35)
[2022-02-21] MEDS ORDERED: Morphine 2 MG/ML SYRINGE IVPUSH PRN (16:35)
[2022-02-21] MEDS ORDERED: Sodium Chloride 0.9% 10 ML Syringe FLUSH PRN ×2 (16:35)
[2022-02-21] MEDS: Gabapentin 100 MG Cap PO SCH (17:42)
[2022-02-21] MEDS: Carbidopa/Levodopa 25-100 MG Tab PO SCH (17:42)
[2022-02-21] MEDS: Ampicillin/Sulbactam Na 1.5 GM Vial IVPUSH SCH (19:25)
[2022-02-21] MEDS: Docusate Sodium 100 MG Cap PO SCH (19:25)
[2022-02-21] MEDS: Mirtazapine 15 MG Tab PO SCH (19:25)
[2022-02-21] MEDS: Acetaminophen/HYDROcodone 325-5 MG Tab PO PRN (19:40)
[2022-02-21] MEDS: LORazepam 0.5 MG Tab PO PRN (23:22)
[2022-02-22] MEDS: Ampicillin/Sulbactam Na 1.5 GM Vial IVPUSH SCH ×2 (01:41→08:30)
[2022-02-22] MEDS: Carbidopa/Levodopa 25-100 MG Tab PO SCH ×3 (08:28→18:42)
[2022-02-22] MEDS: Furosemide 40 MG Tab PO SCH (08:28)
[2022-02-22] MEDS: Beta-Carotene (Vitamin A) w/Vitamin C & E plus Minerals Tab PO SCH (08:31)
[2022-02-22] MEDS: Aspirin 81 MG Tab.EC PO SCH (08:31)
[2022-02-22] MEDS: Gabapentin 100 MG Cap PO SCH ×3 (08:31→18:42)
[2022-02-22] MEDS: Docusate Sodium 100 MG Cap PO SCH ×2 (08:31→19:28)
[2022-02-22] MEDS: Mirtazapine 15 MG Tab PO SCH (19:28)
[2022-02-22] MEDS: Acetaminophen/HYDROcodone 325-5 MG Tab PO PRN (19:53)
[2022-02-22] MEDS: LORazepam 0.5 MG Tab PO PRN (19:54)
[2022-02-23] MEDS: Gabapentin 100 MG Cap PO SCH ×3 (08:09→18:15)
[2022-02-23] MEDS: Furosemide 40 MG Tab PO SCH (08:09)
[2022-02-23] MEDS: Docusate Sodium 100 MG Cap PO SCH ×2 (08:09→20:16)
[2022-02-23] MEDS: Carbidopa/Levodopa 25-100 MG Tab PO SCH ×3 (08:09→18:15)
[2022-02-23] MEDS: Beta-Carotene (Vitamin A) w/Vitamin C & E plus Minerals Tab PO SCH (08:09)
[2022-02-23] MEDS: Aspirin 81 MG Tab.EC PO SCH (08:10)
[2022-02-23] MEDS: Polyethylene Glycol 3350 Powder 17 GM Packet PO SCH ×2 (14:35→20:16)
[2022-02-23] MEDS: Acetaminophen/HYDROcodone 325-5 MG Tab PO PRN (17:10)
[2022-02-23] MEDS: Mirtazapine 15 MG Tab PO SCH (20:16)
[2022-02-24] MEDS: Polyethylene Glycol 3350 Powder 17 GM Packet PO SCH ×2 (08:12→20:13)
[2022-02-24] MEDS: Furosemide 40 MG Tab PO SCH (08:12)
[2022-02-24] MEDS: Docusate Sodium 100 MG Cap PO SCH ×2 (08:12→20:13)
[2022-02-24] MEDS: Beta-Carotene (Vitamin A) w/Vitamin C & E plus Minerals Tab PO SCH (08:12)
[2022-02-24] MEDS: Aspirin 81 MG Tab.EC PO SCH (08:12)
[2022-02-24] MEDS: Carbidopa/Levodopa 25-100 MG Tab PO SCH ×3 (08:12→17:46)
[2022-02-24] MEDS: Gabapentin 100 MG Cap PO SCH ×3 (08:12→17:46)
[2022-02-24] MEDS: Acetaminophen/HYDROcodone 325-5 MG Tab PO PRN ×2 (08:17→20:13)
[2022-02-24] MEDS: Mirtazapine 15 MG Tab PO SCH (20:13)
[2022-02-25] MEDS: Polyethylene Glycol 3350 Powder 17 GM Packet PO SCH ×2 (07:41→19:33)
[2022-02-25] MEDS: Furosemide 40 MG Tab PO SCH (07:41)
[2022-02-25] MEDS: Aspirin 81 MG Tab.EC PO SCH (07:41)
[2022-02-25] MEDS: Carbidopa/Levodopa 25-100 MG Tab PO SCH ×3 (07:41→17:40)
[2022-02-25] MEDS: Beta-Carotene (Vitamin A) w/Vitamin C & E plus Minerals Tab PO SCH (07:41)
[2022-02-25] MEDS: Docusate Sodium 100 MG Cap PO SCH ×2 (07:41→19:33)
[2022-02-25] MEDS: Gabapentin 100 MG Cap PO SCH ×3 (07:41→17:40)
[2022-02-25] MEDS: Mirtazapine 15 MG Tab PO SCH (19:40)
[2022-02-26] MEDS: Polyethylene Glycol 3350 Powder 17 GM Packet PO SCH ×2 (07:50→19:49)
[2022-02-26] MEDS: Furosemide 40 MG Tab PO SCH (07:50)
[2022-02-26] MEDS: Gabapentin 100 MG Cap PO SCH ×3 (07:51→17:41)
[2022-02-26] MEDS: Docusate Sodium 100 MG Cap PO SCH ×2 (07:51→19:49)
[2022-02-26] MEDS: Beta-Carotene (Vitamin A) w/Vitamin C & E plus Minerals Tab PO SCH (07:51)
[2022-02-26] MEDS: Carbidopa/Levodopa 25-100 MG Tab PO SCH ×3 (07:51→17:41)
[2022-02-26] MEDS: Aspirin 81 MG Tab.EC PO SCH (07:52)
[2022-02-26] MEDS: Mirtazapine 15 MG Tab PO SCH (19:49)
[2022-02-26] MEDS: Acetaminophen 325 MG Tab PO PRN (19:49)
[2022-02-27] MEDS: Polyethylene Glycol 3350 Powder 17 GM Packet PO SCH ×2 (07:45→19:39)
[2022-02-27] MEDS: Carbidopa/Levodopa 25-100 MG Tab PO SCH ×3 (07:45→17:49)
[2022-02-27] MEDS: Docusate Sodium 100 MG Cap PO SCH ×2 (07:45→19:39)
[2022-02-27] MEDS: Furosemide 40 MG Tab PO SCH (07:46)
[2022-02-27] MEDS: Aspirin 81 MG Tab.EC PO SCH (07:46)
[2022-02-27] MEDS: Gabapentin 100 MG Cap PO SCH ×3 (07:46→17:49)
[2022-02-27] MEDS: Beta-Carotene (Vitamin A) w/Vitamin C & E plus Minerals Tab PO SCH (07:46)
[2022-02-27] MEDS: Mirtazapine 15 MG Tab PO SCH (19:39)
[2022-02-28] MEDS: Furosemide 40 MG Tab PO SCH (08:00)
[2022-02-28] MEDS: Aspirin 81 MG Tab.EC PO SCH (08:00)
[2022-02-28] MEDS: Carbidopa/Levodopa 25-100 MG Tab PO SCH ×3 (08:00→17:19)
[2022-02-28] MEDS: Beta-Carotene (Vitamin A) w/Vitamin C & E plus Minerals Tab PO SCH (08:00)
[2022-02-28] MEDS: Docusate Sodium 100 MG Cap PO SCH ×2 (08:00→19:41)
[2022-02-28] MEDS: Polyethylene Glycol 3350 Powder 17 GM Packet PO SCH ×2 (08:00→19:41)
[2022-02-28] MEDS: Gabapentin 100 MG Cap PO SCH ×3 (08:00→17:19)
[2022-02-28] MEDS: Acetaminophen/HYDROcodone 325-5 MG Tab PO PRN (17:19)
[2022-02-28] MEDS ORDERED: Furosemide 40 MG Tab PO ONE (18:47)
[2022-02-28] MEDS: Mirtazapine 15 MG Tab PO SCH (19:40)
[2022-02-28] MEDS: LORazepam 0.5 MG Tab PO PRN (22:28)
[2022-03-01] MEDS: Acetaminophen 325 MG Tab PO PRN ×2 (00:12→19:53)
[2022-03-01] MEDS: Gabapentin 100 MG Cap PO SCH ×3 (07:29→17:53)
[2022-03-01] MEDS: Beta-Carotene (Vitamin A) w/Vitamin C & E plus Minerals Tab PO SCH (07:29)
[2022-03-01] MEDS: Docusate Sodium 100 MG Cap PO SCH ×2 (07:29→19:54)
[2022-03-01] MEDS: Potassium Chloride 10 MEQ Tab.ER PO SCH (07:29)
[2022-03-01] MEDS: Furosemide 40 MG Tab PO SCH (07:29)
[2022-03-01] MEDS: Polyethylene Glycol 3350 Powder 17 GM Packet PO SCH ×2 (07:29→19:54)
[2022-03-01] MEDS: Carbidopa/Levodopa 25-100 MG Tab PO SCH ×3 (07:29→17:52)
[2022-03-01] MEDS: Aspirin 81 MG Tab.EC PO SCH (07:29)
[2022-03-01] MEDS: Acetaminophen/HYDROcodone 325-5 MG Tab PO PRN (11:39)
[2022-03-01] MEDS: LORazepam 0.5 MG Tab PO PRN (12:23)
[2022-03-01] MEDS: Mirtazapine 15 MG Tab PO SCH (19:53)
[2022-03-02] MEDS: Gabapentin 100 MG Cap PO SCH ×3 (07:34→17:12)
[2022-03-02] MEDS: Aspirin 81 MG Tab.EC PO SCH (07:34)
[2022-03-02] MEDS: Furosemide 40 MG Tab PO SCH (07:34)
[2022-03-02] MEDS: Acetaminophen 325 MG Tab PO PRN (07:34)
[2022-03-02] MEDS: Carbidopa/Levodopa 25-100 MG Tab PO SCH ×3 (07:34→17:11)
[2022-03-02] MEDS: Potassium Chloride 10 MEQ Tab.ER PO SCH (07:34)
[2022-03-02] MEDS: Beta-Carotene (Vitamin A) w/Vitamin C & E plus Minerals Tab PO SCH (07:34)
[2022-03-02] MEDS: Polyethylene Glycol 3350 Powder 17 GM Packet PO SCH ×2 (07:35→22:21)
[2022-03-02] MEDS: Docusate Sodium 100 MG Cap PO SCH ×2 (07:35→22:21)
[2022-03-02] MEDS: Mirtazapine 15 MG Tab PO SCH (19:37)
[2022-03-02] MEDS: LORazepam 0.5 MG Tab PO PRN (19:38)
[2022-03-02] MEDS: Acetaminophen/HYDROcodone 325-5 MG Tab PO PRN (19:38)
[2022-03-03] MEDS: Aspirin 81 MG Tab.EC PO SCH (07:55)
[2022-03-03] MEDS: Beta-Carotene (Vitamin A) w/Vitamin C & E plus Minerals Tab PO SCH (07:55)
[2022-03-03] MEDS: Gabapentin 100 MG Cap PO SCH ×3 (07:56→17:51)
[2022-03-03] MEDS: Furosemide 40 MG Tab PO SCH (07:56)
[2022-03-03] MEDS: Potassium Chloride 10 MEQ Tab.ER PO SCH (07:56)
[2022-03-03] MEDS: Carbidopa/Levodopa 25-100 MG Tab PO SCH ×3 (07:56→17:51)
[2022-03-03] MEDS: Polyethylene Glycol 3350 Powder 17 GM Packet PO SCH ×2 (11:39→23:35)
[2022-03-03] MEDS: Docusate Sodium 100 MG Cap PO SCH ×2 (11:39→23:35)
[2022-03-03] MEDS: Acetaminophen 325 MG Tab PO PRN (14:38)
[2022-03-03] MEDS: Acetaminophen/HYDROcodone 325-5 MG Tab PO PRN (20:09)
[2022-03-03] MEDS: LORazepam 0.5 MG Tab PO PRN (20:09)
[2022-03-03] MEDS: Mirtazapine 15 MG Tab PO SCH (20:09)
[2022-03-04] MEDS: Carbidopa/Levodopa 25-100 MG Tab PO SCH ×3 (07:53→17:54)
[2022-03-04] MEDS: Potassium Chloride 10 MEQ Tab.ER PO SCH (07:53)
[2022-03-04] MEDS: Polyethylene Glycol 3350 Powder 17 GM Packet PO SCH ×2 (07:53→19:32)
[2022-03-04] MEDS: Furosemide 40 MG Tab PO SCH (07:54)
[2022-03-04] MEDS: Docusate Sodium 100 MG Cap PO SCH ×2 (07:54→19:32)
[2022-03-04] MEDS: Aspirin 81 MG Tab.EC PO SCH (07:54)
[2022-03-04] MEDS: Beta-Carotene (Vitamin A) w/Vitamin C & E plus Minerals Tab PO SCH (07:54)
[2022-03-04] MEDS: Gabapentin 100 MG Cap PO SCH ×3 (07:54→17:54)
[2022-03-04] MEDS: Mirtazapine 15 MG Tab PO SCH (19:32)
[2022-03-05] MEDS: Potassium Chloride 10 MEQ Tab.ER PO SCH (07:54)
[2022-03-05] MEDS: Gabapentin 100 MG Cap PO SCH ×3 (07:54→17:44)
[2022-03-05] MEDS: Carbidopa/Levodopa 25-100 MG Tab PO SCH ×3 (07:54→17:44)
[2022-03-05] MEDS: Beta-Carotene (Vitamin A) w/Vitamin C & E plus Minerals Tab PO SCH (07:54)
[2022-03-05] MEDS: Docusate Sodium 100 MG Cap PO SCH ×2 (07:54→20:03)
[2022-03-05] MEDS: Polyethylene Glycol 3350 Powder 17 GM Packet PO SCH ×2 (07:54→20:03)
[2022-03-05] MEDS: Aspirin 81 MG Tab.EC PO SCH (07:55)
[2022-03-05] MEDS: Furosemide 40 MG Tab PO SCH (07:55)
[2022-03-05] MEDS: Mirtazapine 15 MG Tab PO SCH (20:03)
[2022-03-06] MEDS: Carbidopa/Levodopa 25-100 MG Tab PO SCH ×3 (07:54→18:06)
[2022-03-06] MEDS: Potassium Chloride 10 MEQ Tab.ER PO SCH (07:54)
[2022-03-06] MEDS: Beta-Carotene (Vitamin A) w/Vitamin C & E plus Minerals Tab PO SCH (07:55)
[2022-03-06] MEDS: Aspirin 81 MG Tab.EC PO SCH (07:55)
[2022-03-06] MEDS: Polyethylene Glycol 3350 Powder 17 GM Packet PO SCH ×2 (07:55→19:34)
[2022-03-06] MEDS: Furosemide 40 MG Tab PO SCH (07:55)
[2022-03-06] MEDS: Gabapentin 100 MG Cap PO SCH ×3 (07:55→18:06)
[2022-03-06] MEDS: Docusate Sodium 100 MG Cap PO SCH ×2 (07:55→19:34)
[2022-03-06] MEDS: Mirtazapine 15 MG Tab PO SCH (19:35)
[2022-03-07] MEDS: Furosemide 40 MG Tab PO SCH (07:25)
[2022-03-07] MEDS: Potassium Chloride 10 MEQ Tab.ER PO SCH (07:25)
[2022-03-07] MEDS: Gabapentin 100 MG Cap PO SCH (07:26)
[2022-03-07] MEDS: Aspirin 81 MG Tab.EC PO SCH (07:26)
[2022-03-07] MEDS: Carbidopa/Levodopa 25-100 MG Tab PO SCH (07:26)
[2022-03-07] MEDS: Beta-Carotene (Vitamin A) w/Vitamin C & E plus Minerals Tab PO SCH (07:26)
[2022-03-07] MEDS: Docusate Sodium 100 MG Cap PO SCH (07:26)
[2022-03-07] MEDS: Polyethylene Glycol 3350 Powder 17 GM Packet PO SCH (07:27)
== END 2022-03-07 10:16 | DRG 948 ==
LOC: UNDOADMIN 11:10 → CC.MS 11:10 → UNDOADMIN 14:48 → CC.MS 14:48
PROVIDERS: ADMIT Nurse Practitioner Family; ATTEND Nurse Practitioner Family
DX: R53.1 Weakness (principal); J90 Pleural effusion, not elsewhere classified; J98.11 Atelectasis; F03.90 Unspecified dementia, unspecified severity, without behavioral disturbance, psychotic disturbance, mood disturbance, and anxiety; R29.6 Repeated falls; S02.85XD Fracture of orbit, unspecified, subsequent encounter for fracture with routine healing; S02.401D Maxillary fracture, unspecified side, subsequent encounter for fracture with routine healing; M25.511 Pain in right shoulder; F41.8 Other specified anxiety disorders; W19.XXXD Unspecified fall, subsequent encounter; Z79.82 Long term (current) use of aspirin; Z79.899 Other long term (current) drug therapy; S02.2XXD Fracture of nasal bones, subsequent encounter for fracture with routine healing
CPT/HCPCS: 36415; 71046; 80053; 81001; 83880; 84484; 85025; 86140; 93005; 97110-GP; 97116-GP; 97161-GP; 97530-GP; 99307; 99315; A9270-GY; J0295

== ENCOUNTER 2022-04-09 08:52 | Emergency (ER) | payer MEDICARE, BC ==
[2022-04-09] MEDS: Lidocaine 1% 5 ML VIAL INJECT ONE (10:00)
== END 2022-04-09 11:09 | disposition home or self-care (01) ==
LOC: CC.ED 08:52
DX: S01.01XA Laceration without foreign body of scalp, initial encounter (principal); I10 Essential (primary) hypertension; Z88.8 Allergy status to other drugs, medicaments and biological substances; Z79.82 Long term (current) use of aspirin; W18.09XA Striking against other object with subsequent fall, initial encounter
CPT/HCPCS: 12002; 70450; 72125; 99283; 99284

== ENCOUNTER 2023-02-11 12:43 | Emergency (ER) | payer MEDICARE, BC | END 2023-02-11 13:26 | disposition home or self-care (01) | LOC: CC.ED 12:43 | DX: S01.01XA Laceration without foreign body of scalp, initial encounter (principal); I10 Essential (primary) hypertension; Z88.8 Allergy status to other drugs, medicaments and biological substances; Z88.5 Allergy status to narcotic agent; Z79.82 Long term (current) use of aspirin; Z79.899 Other long term (current) drug therapy; W18.30XA Fall on same level, unspecified, initial encounter; Y92.129 Unspecified place in nursing home as the place of occurrence of the external cause | CPT/HCPCS: 12001; 99282; 99283 ==

== ENCOUNTER 2023-04-25 12:25 | Emergency (ER) | payer MEDICARE, BC ==
[2023-04-25 12:59] LABS: BASOPHILS ABSOLUTE AUTO 0.05 10^3/uL (0.00-0.50); BASOPHILS PERCENT AUTO 0.8 % (0-1); EOSINOPHILS ABSOLUTE AUTO 0.16 10^3/uL (0.00-1.50); EOSINOPHILS PERCENT AUTO 2.6 % (0-6); HEMATOCRIT 37.8 % (37.0-47.0); HEMOGLOBIN 12.7 g/dL (12.0-16.0); IMMATURE GRAN ABSOLUTE AUTO 0.02 10^3/uL (0.00-0.49); IMMATURE GRAN PERCENT AUTO 0.3 % (0.0-4.9); LYMPHOCYTES ABSOLUTE AUTO 1.75 10^3/uL (0.60-5.00); LYMPHOCYTES PERCENT AUTO 28.3 % (24-44); MEAN CORPUSCULAR HEMOGLOBIN 30.2 pg (27.0-32.0); MEAN CORPUSCULAR HGB CONC 33.6 g/dL (32.0-36.0); MEAN CORPUSCULAR VOLUME 89.8 fL (83.0-97.0); MONOCYTES ABSOLUTE AUTO 0.46 10^3/uL (0.00-1.50); MONOCYTES PERCENT AUTO 7.4 % (0-10); NEUTROPHILS ABSOLUTE AUTO 3.75 x10^3/uL (1.80-8.00); NEUTROPHILS PERCENT AUTO 60.6 % (41-71); PLATELET COUNT,PLT 228 10^3/uL (150-400); RED BLOOD CELL COUNT 4.21 x10^6/uL (4.00-5.50); WHITE BLOOD CELL COUNT,WBC 6.2 10^3/uL (4.0-11.0)
[2023-04-25 13:10] LABS: ALBUMIN 3.5 g/dL (3.4-5.0); BILIRUBIN TOTAL 0.4 mg/dL (0.0-1.0); C-REACTIVE PROTEIN 0.09 mg/dL (<=0.30); CALCIUM 9.6 mg/dL (8.4-10.1); CREATININE 1.2 mg/dL (0.6-1.0); EST CRCL DRUG DOSING (CG) 30.91 mL/min; MAGNESIUM 2.1 mg/dL (1.8-2.4); POTASSIUM,K 4.4 mEq/L (3.5-5.0); PROTEIN TOTAL,TP 6.7 g/dL (6.4-8.2)
[2023-04-25] MEDS ORDERED: Aspirin 81 MG Tab.Chew PO ONE (13:12)
== END 2023-04-25 14:00 | disposition home or self-care (01) ==
LOC: CC.ED 12:25
DX: R07.89 Other chest pain (principal); R55 Syncope and collapse; M19.90 Unspecified osteoarthritis, unspecified site; Z88.5 Allergy status to narcotic agent; Z88.8 Allergy status to other drugs, medicaments and biological substances
CPT/HCPCS: 36415; 71045; 80053; 83735; 84484; 85025; 86140; 93005; 99285; A9270; 93010; 99284

== ENCOUNTER 2023-12-13 11:05 | Emergency (ER) | payer MEDICARE, MEDICAID | END 2023-12-13 13:55 | LOC: SUPCPDRO 11:05 → CC.ED 11:05 | DX: S50.01XA Contusion of right elbow, initial encounter (principal); M25.511 Pain in right shoulder; M25.551 Pain in right hip; I11.0 Hypertensive heart disease with heart failure; I50.9 Heart failure, unspecified; Z88.5 Allergy status to narcotic agent; Z88.8 Allergy status to other drugs, medicaments and biological substances; Z79.82 Long term (current) use of aspirin; Z79.899 Other long term (current) drug therapy; Z90.49 Acquired absence of other specified parts of digestive tract; Z90.710 Acquired absence of both cervix and uterus; W18.39XA Other fall on same level, initial encounter | CPT/HCPCS: 70450; 73030-RT; 73060-RT; 73562-RT; 99284; 99285 ==